=== PATIENT | female | born 1960 | race Caucasian/White ===

== ENCOUNTER 2020-05-19 11:12 | Outpatient (REF) | payer OTHER, SELFPAY ==
--- NOTE | 2020-05-19 11:17 | XR_ITS ---
EXAMINATION: LEFT ANKLE AND LEFT FOOT. CLINICAL INFORMATION: Pain left ankle and left foot. COMPARISON: None TECHNIQUE: 3 views left foot and 2 views left ankle. FINDINGS: LEFT FOOT: There is no visible acute fracture, dislocation or subluxation seen. There is loss of first MTP joint space with periarticular spurring. Rest of the joint spaces are maintained normal. The soft tissues are normal. LEFT ANKLE: The small to moderate size calcaneal spur and a retrocalcaneal enthesophyte. The ankle mortise and subtalar joints are normal. No visible acute fracture or dislocation seen. XR/XR foot LT min 3V IMPRESSION: Degenerative changes first MTP joint with periapical spurring. No fracture or dislocation in left foot. Mild to moderate calcaneal and small retrocalcaneal enthesophytes left ankle. No acute fracture or dislocation in left ankle.
--- NOTE | 2020-05-19 11:17 | XR_ITS ---
EXAMINATION: LEFT ANKLE AND LEFT FOOT. CLINICAL INFORMATION: Pain left ankle and left foot. COMPARISON: None TECHNIQUE: 3 views left foot and 2 views left ankle. FINDINGS: LEFT FOOT: There is no visible acute fracture, dislocation or subluxation seen. There is loss of first MTP joint space with periarticular spurring. Rest of the joint spaces are maintained normal. The soft tissues are normal. LEFT ANKLE: The small to moderate size calcaneal spur and a retrocalcaneal enthesophyte. The ankle mortise and subtalar joints are normal. No visible acute fracture or dislocation seen. XR/XR ankle LT 2V IMPRESSION: Degenerative changes first MTP joint with periapical spurring. No fracture or dislocation in left foot. Mild to moderate calcaneal and small retrocalcaneal enthesophytes left ankle. No acute fracture or dislocation in left ankle.
== END 2020-05-19 11:13 | disposition home or self-care (01) ==
LOC: HO.HMGCX 11:12
PROVIDERS: PCP Nurse Practitioner Family; Visit Provider Nurse Practitioner Family
DX: M25.572 Pain in left ankle and joints of left foot (principal)
CPT/HCPCS: 73600; 73630

== ENCOUNTER 2020-08-11 08:51 | Outpatient (REF) | payer OTHER, SELFPAY ==
[2020-08-11 11:15] LABS: MANUAL DIFF FLAG NO
[2020-08-11 11:23] LABS: Basophils Absolute Auto 0.1 X10*3/uL (0.0-0.2); Basophils Percent Auto 0.8 % (0-2); Eosinophils Absolute Auto 0.2 X10*3/uL (0.0-0.4); Eosinophils Percent Auto 2.7 % (0-4); Hematocrit 42.8 % (37-47); Hemoglobin 13.8 g/dl (12.0-16.0); Imm Gran Abs Auto 0.02 X10*3/uL (0.00-0.03); Imm Gran Pct Auto 0.3 % (0.0-0.4); Lymphocytes Absolute Auto 2.1 X10*3/uL (1.2-4.9); Lymphocytes Percent Auto 32.1 % (20-40); Mean Corpuscular HGB Conc 32.2 g/dl (31.0-35.0); Mean Corpuscular Hemoglobin 30.3 pg (27.0-33.0); Mean Corpuscular Volume 93.9 fL (80-98); Mean Platelet Volume 10.3 fL (9.4-12.3); Monocytes Absolute Auto 0.6 X10*3/uL (0.1-1.2); Monocytes Percent Auto 9.1 % (2-11); Neutrophils Absolute Auto 3.6 X10*3/uL (2.0-8.3); Platelet Count 248 X10*3/uL (160-400); Red Blood Count 4.56 X10*6/uL (4.20-5.50); Red Cell Distribution Width 12.5 % (11.0-16.0); White Blood Count 6.6 X10*3/uL (4.8-10.8)
[2020-08-11 11:55] LABS: Alanine Aminotransferase 18 U/L (0-31); Albumin Level 4.5 g/dL (3.5-5.0); Alkaline Phosphatase 62 U/L (39-117); Anion Gap 13 (12-20); Aspartate Amino Transferase 20 U/L (5-31); Bilirubin Total 0.5 mg/dL (0.0-1.0); Blood Urea Nitrogen 19 mg/dL (9-16); C Reactive Protein 0.13 mg/dL (< or = 0.50); Calcium 9.8 mg/dL (8.4-10.2); Carbon Dioxide 29 mmol/L (22-29); Chloride 102 mmol/L (96-108); Cholesterol 163 mg/dL; Estimated Glomerular Filt Rate > 60; Glucose Fasting 100 mg/dL (60-99); HDL Cholesterol 49 mg/dL; LDL Cholesterol Calculated 81 mg/dl; Rheumatoid Factor < 15.0 IU/mL (<15.0); Sodium 140 mmol/L (135-145); Total Protein 6.9 g/dL (6.5-8.0); Triglycerides 166 mg/dL
[2020-08-11 12:11] LABS: Erythrocyte Sedimentation Rate 3 MM/HR (0-20)
[2020-08-11 12:19] LABS: TSH reflex Free T4 3.27 uIU/mL (0.32-4.0); Vitamin D 25-OH Total 32.4 ng/mL (>30)
[2020-08-12 23:12] LABS: Anti Nuclear Antibody Pattern Mitotic, Centrosome; Anti Nuclear Antibody Screen POSITIVE (NEGATIVE); Anti Nuclear Antibody Titer 1:40 titer
[2020-08-13 13:36] LABS: Cyclic Citrullinated Peptide <16 UNITS
== END 2020-08-11 08:52 | disposition home or self-care (01) ==
LOC: HO.HMGCLDS 08:51
PROVIDERS: PCP Nurse Practitioner Family; Visit Provider Nurse Practitioner Family
DX: Z00.00 Encounter for general adult medical examination without abnormal findings (principal); Z82.61 Family history of arthritis; Z78.0 Asymptomatic menopausal state
CPT/HCPCS: 36415; 80053; 80061; 82306; 84443; 85025; 85652; 86038; 86039; 86140; 86200; 86431

== ENCOUNTER 2020-11-09 08:28 | Outpatient (REF) | payer OTHER, SELFPAY ==
[2020-11-09 10:17] LABS: MANUAL DIFF FLAG NO
[2020-11-09 10:22] LABS: Basophils Percent Auto 0.6 % (0-2); Eosinophils Absolute Auto 0.1 X10*3/uL (0.0-0.4); Eosinophils Percent Auto 1.8 % (0-4); Hematocrit 44.1 % (37-47); Hemoglobin 14.1 g/dl (12.0-16.0); Imm Gran Abs Auto 0.03 X10*3/uL (0.00-0.03); Imm Gran Pct Auto 0.4 % (0.0-0.4); Lymphocytes Absolute Auto 1.9 X10*3/uL (1.2-4.9); Lymphocytes Percent Auto 27.8 % (20-40); Mean Corpuscular Hemoglobin 29.4 pg (27.0-33.0); Mean Corpuscular Volume 91.9 fL (80-98); Mean Platelet Volume 10.2 fL (9.4-12.3); Monocytes Absolute Auto 0.5 X10*3/uL (0.1-1.2); Monocytes Percent Auto 7.6 % (2-11); Neutrophils Absolute Auto 4.2 X10*3/uL (2.0-8.3); Neutrophils Percent Auto 61.8 % (45-73); Platelet Count 263 X10*3/uL (160-400); Red Cell Distribution Width 12.8 % (11.0-16.0); White Blood Count 6.8 X10*3/uL (4.8-10.8)
[2020-11-09 10:32] LABS: Glucose Urine UA NEG (NEG); Leukocyte Esterase Urine TRACE (NEG); Nitrite Urine NEG (NEG); PH 6.5 (5.0-8.0); Specific Gravity - Urine <= 1.005 (1.005-1.025); Urine Blood NEG (NEG); Urine Ketones NEG (NEG); Urine Protein NEG (NEG-TRACE)
[2020-11-09 10:34] LABS: Appearance Urine CLEAR; Color Urine STRAW
[2020-11-09 10:50] LABS: Alanine Aminotransferase 17 U/L (0-31); Albumin Level 4.7 g/dL (3.5-5.0); Alkaline Phosphatase 66 U/L (39-117); Anion Gap 15 (12-20); Aspartate Amino Transferase 21 U/L (5-31); Bilirubin Total 0.4 mg/dL (0.0-1.0); Blood Urea Nitrogen 17 mg/dL (9-16); C Reactive Protein 0.15 mg/dL (< or = 0.50); Calcium 10.3 mg/dL (8.4-10.2); Carbon Dioxide 26 mmol/L (22-29); Chloride 103 mmol/L (96-108); Estimated Glomerular Filt Rate > 60; Glucose Random 117 mg/dL (60-115); Potassium 4.1 mmol/L (3.3-5.1); Sodium 140 mmol/L (135-145); Total Protein 7.2 g/dL (6.5-8.0)
[2020-11-09 11:13] LABS: Erythrocyte Sedimentation Rate 2 MM/HR (0-20)
[2020-11-09 11:18] LABS: RBC Urine 0 /HPF (0); Squamous Epithelial Cell Urine TRACE /LPF; WBC Urine 0-2 /HPF (0-4)
[2020-11-09 11:19] LABS: Renal Epithelial Cells Urine TRACE /LPF
[2020-11-10 13:51] LABS: Complement C3 154 mg/dL (83-193)
[2020-11-11 07:57] LABS: Thyroglobulin Antibodies <1 IU/mL (< or = 1); Thyroid Peroxidase Antibodies 19 IU/mL (<9)
[2020-11-11 15:22] LABS: PTT (LAC) Screen 29 sec (< OR = 40)
[2020-11-12 15:47] LABS: Anti DNA DS Antibody <1 IU/mL; Antibody to SS-A Antigen <1.0 NEG AI (<1.0 NEG); Antibody to SS-B Antigen <1.0 NEG AI (<1.0 NEG); SM/Ribonucleoprotein Ab <1.0 NEG AI (<1.0 NEG); Smith Protein <1.0 NEG AI (<1.0 NEG)
[2020-11-13 14:32] LABS: Cardiolipin IgG Ab <2.0 GPL-U/mL; Cardiolipin IgM Ab <2.0 MPL-U/mL
[2020-11-15 16:16] LABS: Beta-2 Microglobulin, Serum 2.11 mg/L (< OR = 2.51)
== END 2020-11-09 08:29 | disposition home or self-care (01) ==
LOC: HO.LAB 08:28
PROVIDERS: PCP Nurse Practitioner Family; Visit Provider Student in an Organized Health Care Education/Training Program
DX: R76.8 Other specified abnormal immunological findings in serum (principal)
CPT/HCPCS: 36415; 80053; 81001; 82232; 85025; 85597; 85613; 85652; 85730; 86140; 86147; 86160; 86225; 86235; 86376; 86800

== ENCOUNTER → 2020-11-30 08:57 | Outpatient (BNVA) | payer OTHER, SELFPAY | PROVIDERS: PCP Nurse Practitioner Family; Visit Provider Student in an Organized Health Care Education/Training Program ==

== ENCOUNTER 2021-05-14 08:58 | Outpatient (REF) | payer OTHER, SELFPAY ==
[2021-05-14 11:16] LABS: MANUAL DIFF FLAG NO
[2021-05-14 11:22] LABS: Basophils Percent Auto 0.5 % (0-2); Eosinophils Absolute Auto 0.1 X10*3/uL (0.0-0.4); Eosinophils Percent Auto 1.6 % (0-4); Hematocrit 45.2 % (37.0-47.0); Hemoglobin 14.2 g/dl (12.0-16.0); Imm Gran Abs Auto 0.02 X10*3/uL (0.00-0.03); Imm Gran Pct Auto 0.2 % (0.0-0.4); Mean Corpuscular HGB Conc 31.4 g/dl (31.0-35.0); Mean Corpuscular Hemoglobin 29.4 pg (27.0-33.0); Mean Corpuscular Volume 93.6 fL (80.0-98.0); Mean Platelet Volume 10.1 fL (9.4-12.3); Monocytes Absolute Auto 0.8 X10*3/uL (0.1-1.2); Monocytes Percent Auto 9.3 % (2-11); Neutrophils Absolute Auto 5.3 x10*3/uL (2.0-8.3); Neutrophils Percent Auto 64.4 % (45-73); Platelet Count 300 X10*3/uL (160-400); Red Blood Count 4.83 X10*6/uL (4.20-5.50); White Blood Count 8.2 X10*3/uL (4.8-10.8)
[2021-05-14 11:26] LABS: Appearance Urine CLEAR; Color Urine STRAW; Glucose Urine UA NEG (NEG); Leukocyte Esterase Urine 1+ (NEG); Nitrite Urine NEG (NEG); PH 6.5 (5.0-8.0); Specific Gravity - Urine <= 1.005 (1.005-1.025); UACC Culture Trigger YES; Urine Blood NEG (NEG); Urine Ketones NEG (NEG); Urine Protein NEG (NEG-TRACE)
[2021-05-14 11:38] LABS: RBC Urine 0-2 /HPF (0); Squamous Epithelial Cell Urine TRACE /LPF
[2021-05-14 11:56] LABS: Alanine Aminotransferase 23 U/L (0-31); Albumin Level 4.9 g/dL (3.5-5.0); Alkaline Phosphatase 70 U/L (39-117); Anion Gap 14 (12-20); Aspartate Amino Transferase 22 U/L (5-31); Bilirubin Total 0.6 mg/dL (0.0-1.0); Blood Urea Nitrogen 14 mg/dL (9-16); Calcium 10.2 mg/dL (8.4-10.2); Carbon Dioxide 28 mmol/L (22-29); Chloride 102 mmol/L (96-108); Cholesterol 174 mg/dL; Estimated Glomerular Filt Rate > 60; Glucose Fasting 100 mg/dL (60-99); HDL Cholesterol 50 mg/dL; Iron 90 mcg/dL (30-160); LDL Cholesterol Calculated 87 mg/dl; Percent Iron Saturation 20 % (15-50); Sodium 140 mmol/L (135-145); Total Iron Binding Capacity 441 mcg/dL (228-428); Total Protein 7.5 g/dL (6.5-8.0); Triglycerides 187 mg/dL; Unsaturated Iron Binding 351 ug/dL
[2021-05-14 12:19] LABS: Ferritin 287 ng/mL (10-250); TSH reflex Free T4 2.49 uIU/mL (0.32-4.0)
[2021-05-16 07:58] LABS: Folate 15.9 ng/mL (> or = 4.0); Vitamin B12 548 pg/mL (200-900)
[2021-05-16 18:17] LABS: Lyme Abs Screen <0.90 index
== END 2021-05-14 08:59 | disposition home or self-care (01) ==
LOC: HO.HMGCLDS 08:58
PROVIDERS: Visit Provider Nurse Practitioner Family
DX: R53.83 Other fatigue (principal)
CPT/HCPCS: 36415; 80053; 80061; 81001; 82607; 82728; 82746; 83540; 84443; 85025; 86617; 86618; 87086; 87147

== ENCOUNTER 2021-06-30 08:19 | Outpatient (REF) | payer OTHER, SELFPAY ==
[2021-06-30 11:02] LABS: MANUAL DIFF FLAG NO
[2021-06-30 11:13] LABS: Appearance Urine CLEAR; Color Urine YELLOW; Glucose Urine UA NEG (NEG); Leukocyte Esterase Urine NEG (NEG); Nitrite Urine NEG (NEG); Urine Blood NEG (NEG); Urine Ketones NEG (NEG); Urine Protein NEG (NEG-TRACE)
[2021-06-30 11:14] LABS: Basophils Percent Auto 0.4 % (0-2); Eosinophils Absolute Auto 0.1 X10*3/uL (0.0-0.4); Eosinophils Percent Auto 1.6 % (0-4); Hematocrit 43.5 % (37.0-47.0); Hemoglobin 13.8 g/dl (12.0-16.0); Imm Gran Abs Auto 0.03 X10*3/uL (0.00-0.03); Imm Gran Pct Auto 0.4 % (0.0-0.4); Immature Retic Fraction 13.5 % (3.0-15.9); Lymphocytes Absolute Auto 1.7 X10*3/uL (1.2-4.9); Lymphocytes Percent Auto 25.5 % (20-40); Mean Corpuscular HGB Conc 31.7 g/dl (31.0-35.0); Mean Corpuscular Hemoglobin 29.5 pg (27.0-33.0); Mean Corpuscular Volume 92.9 fL (80.0-98.0); Mean Platelet Volume 10.1 fL (9.4-12.3); Monocytes Absolute Auto 0.6 X10*3/uL (0.1-1.2); Monocytes Percent Auto 8.8 % (2-11); Neutrophils Absolute Auto 4.2 x10*3/uL (2.0-8.3); Neutrophils Percent Auto 63.3 % (45-73); Platelet Count 249 X10*3/uL (160-400); Red Blood Count 4.68 X10*6/uL (4.20-5.50); Red Cell Distribution Width 12.9 % (11.0-16.0); Retic HGB Equivalent 35.1 pg (30.0-35.0); Reticulocyte Percent 1.5 % (0.5-1.8); Reticulocytes Absolute 0.069 X10*6/uL (0.026-0.095); White Blood Count 6.7 X10*3/uL (4.8-10.8)
[2021-06-30 11:31] LABS: Alanine Aminotransferase 21 U/L (0-31); Albumin Level 4.5 g/dL (3.5-5.0); Alkaline Phosphatase 63 U/L (39-117); Anion Gap 13 (12-20); Aspartate Amino Transferase 24 U/L (5-31); Bilirubin Total 0.6 mg/dL (0.0-1.0); Blood Urea Nitrogen 15 mg/dL (9-16); C Reactive Protein 0.23 mg/dL (< or = 0.50); Carbon Dioxide 29 mmol/L (22-29); Chloride 103 mmol/L (96-108); Estimated Glomerular Filt Rate > 60; Glucose Random 107 mg/dL (60-115); Iron 95 mcg/dL (30-160); Percent Iron Saturation 23 % (15-50); Potassium 3.7 mmol/L (3.3-5.1); Sodium 141 mmol/L (135-145); Total Iron Binding Capacity 413 mcg/dL (228-428); Total Protein 6.9 g/dL (6.5-8.0); Unsaturated Iron Binding 318 ug/dL
[2021-06-30 11:53] LABS: Ferritin 241 ng/mL (10-250)
[2021-06-30 11:55] LABS: Erythrocyte Sedimentation Rate 2 MM/HR (0-20)
== END 2021-06-30 08:20 | disposition home or self-care (01) ==
LOC: HO.HMGCLDS 08:19
PROVIDERS: PCP Nurse Practitioner Family; Visit Provider Nurse Practitioner Family
DX: R79.89 Other specified abnormal findings of blood chemistry (principal); R53.83 Other fatigue
CPT/HCPCS: 36415; 80053; 81003; 82728; 83540; 85025; 85045; 85652; 86140

== ENCOUNTER 2021-07-21 10:44 | Outpatient (REF) | payer OTHER, SELFPAY ==
[2021-07-21 13:45] LABS: MANUAL DIFF FLAG NO
[2021-07-21 13:50] LABS: Basophils Percent Auto 0.5 % (0-2); Eosinophils Absolute Auto 0.1 X10*3/uL (0.0-0.4); Eosinophils Percent Auto 1.7 % (0-4); Hematocrit 45.9 % (37.0-47.0); Hemoglobin 14.5 g/dl (12.0-16.0); Imm Gran Abs Auto 0.02 X10*3/uL (0.00-0.03); Imm Gran Pct Auto 0.3 % (0.0-0.4); Lymphocytes Absolute Auto 2.1 X10*3/uL (1.2-4.9); Lymphocytes Percent Auto 26.6 % (20-40); Mean Corpuscular HGB Conc 31.6 g/dl (31.0-35.0); Mean Corpuscular Volume 94.8 fL (80.0-98.0); Mean Platelet Volume 10.3 fL (9.4-12.3); Monocytes Absolute Auto 0.6 X10*3/uL (0.1-1.2); Neutrophils Percent Auto 63.9 % (45-73); Platelet Count 263 X10*3/uL (160-400); Red Blood Count 4.84 X10*6/uL (4.20-5.50); Red Cell Distribution Width 12.9 % (11.0-16.0); White Blood Count 7.9 X10*3/uL (4.8-10.8)
[2021-07-21 13:59] LABS: Alanine Aminotransferase 23 U/L (0-31); Albumin Level 4.7 g/dL (3.5-5.0); Alkaline Phosphatase 67 U/L (39-117); Anion Gap 14 (12-20); Aspartate Amino Transferase 25 U/L (5-31); Bilirubin Total 0.7 mg/dL (0.0-1.0); Blood Urea Nitrogen 10 mg/dL (9-16); Carbon Dioxide 27 mmol/L (22-29); Chloride 100 mmol/L (96-108); Estimated Glomerular Filt Rate > 60; Glucose Random 85 mg/dL (60-115); Potassium 3.4 mmol/L (3.3-5.1); Sodium 138 mmol/L (135-145); Total Protein 7.2 g/dL (6.5-8.0)
[2021-07-22 22:32] LABS: Transglutaminase IgA <1.0 U/mL
[2021-07-27 16:05] LABS: Endomysial IgA Antibody Negative (Negative)
== END 2021-07-21 10:45 | disposition home or self-care (01) ==
LOC: HO.HMGCLDS 10:44
PROVIDERS: PCP Nurse Practitioner Family; Visit Provider Nurse Practitioner Family
DX: R19.7 Diarrhea, unspecified (principal)
CPT/HCPCS: 36415; 80053; 85025; 86231; 86364

== ENCOUNTER 2021-07-26 08:02 | Outpatient (REF) | payer OTHER, SELFPAY ==
[2021-07-26 12:13] LABS: CDiff Gene PCR NEGATIVE (Negative)
[2021-07-26 13:04] LABS: Leukocytes Stool Qualitative NEGATIVE (NEGATIVE)
== END 2021-07-26 08:03 | disposition home or self-care (01) ==
LOC: HO.HMGCLNP 08:02
PROVIDERS: Visit Provider Nurse Practitioner Family
DX: R19.7 Diarrhea, unspecified (principal)
CPT/HCPCS: 87045; 87046; 87177; 87209; 87329; 87493; 89055

== ENCOUNTER → 2021-09-21 08:04 | Outpatient (BNVA) | payer OTHER, SELFPAY | PROVIDERS: PCP Nurse Practitioner Family; Referring Provider Nurse Practitioner Family; Visit Provider Physician Assistant | DX: R10.9 Unspecified abdominal pain (principal) ==

== ENCOUNTER 2022-01-31 07:49 | Outpatient (REF) | payer BC, SELFPAY ==
[2022-01-31 11:25] LABS: MANUAL DIFF FLAG NO
[2022-01-31 11:36] LABS: Basophils Absolute Auto 0.1 X10*3/uL (0.0-0.2); Basophils Percent Auto 0.8 % (0-2); Eosinophils Absolute Auto 0.2 X10*3/uL (0.0-0.4); Hematocrit 43.9 % (37.0-47.0); Hemoglobin 13.8 g/dl (12.0-16.0); Imm Gran Abs Auto 0.02 X10*3/uL (0.00-0.03); Imm Gran Pct Auto 0.3 % (0.0-0.4); Lymphocytes Absolute Auto 2.2 X10*3/uL (1.2-4.9); Lymphocytes Percent Auto 29.3 % (20-40); Mean Corpuscular HGB Conc 31.4 g/dl (31.0-35.0); Mean Corpuscular Hemoglobin 28.8 pg (27.0-33.0); Mean Corpuscular Volume 91.6 fL (80.0-98.0); Mean Platelet Volume 10.2 fL (9.4-12.3); Monocytes Absolute Auto 0.8 X10*3/uL (0.1-1.2); Monocytes Percent Auto 10.4 % (2-11); Neutrophils Absolute Auto 4.3 x10*3/uL (2.0-8.3); Neutrophils Percent Auto 57.2 % (45-73); Platelet Count 247 X10*3/uL (160-400); Red Blood Count 4.79 X10*6/uL (4.20-5.50); Red Cell Distribution Width 13.4 % (11.0-16.0); White Blood Count 7.5 X10*3/uL (4.8-10.8)
[2022-01-31 12:14] LABS: Alanine Aminotransferase 18 U/L (0-31); Albumin Level 4.6 g/dL (3.5-5.0); Alkaline Phosphatase 64 U/L (39-117); Anion Gap 13 (12-20); Aspartate Amino Transferase 20 U/L (5-31); Bilirubin Total 0.4 mg/dL (0.0-1.0); Blood Urea Nitrogen 14 mg/dL (9-16); Calcium 9.8 mg/dL (8.4-10.2); Carbon Dioxide 29 mmol/L (22-29); Chloride 103 mmol/L (96-108); Estimated Glomerular Filt Rate > 60; Glucose Random 102 mg/dL (60-115); Potassium 3.8 mmol/L (3.3-5.1); Sodium 141 mmol/L (135-145); Total Protein 6.9 g/dL (6.5-8.0)
[2022-01-31 12:36] LABS: TSH reflex Free T4 2.14 uIU/mL (0.32-4.0); Vitamin D 25-OH Total 30.2 ng/mL (>30)
== END 2022-01-31 07:50 | disposition home or self-care (01) ==
LOC: HO.HMGCLDS 07:49
PROVIDERS: PCP Nurse Practitioner Family; Visit Provider Nurse Practitioner Family
DX: I10 Essential (primary) hypertension (principal); F41.9 Anxiety disorder, unspecified
CPT/HCPCS: 36415; 80053; 82306; 84443; 85025

== ENCOUNTER 2022-02-01 06:57 | Day surgery (SDC) | payer BC, SELFPAY ==
--- NOTE | 2022-01-31 09:11 | P.CONAN_ITS ---
Documented by User: Celeste Bergeron NP 01/31/22 09:12 HPI - Anesthesia Eval Consult details Narrative: 62yo F for Upper Endoscopy and Colonoscopy PMF Active Problems Active Problems: All Active Problems (Updated 09/23/21 @ 13:28 by Deja Franks PA-C) Acid reflux (Acute) Hemorrhoids (Acute) Abdominal cramping (Acute) Diarrhea (Acute) Elevated ferritin (Acute) Anxiety (Acute) Fatigue (Acute) HTN (hypertension) (Acute) Mold exposure (Acute) Pain of left scapula (Acute) Positive LURDES (antinuclear antibody) (Acute) Postmenopausal (Acute) Left foot pain (Acute) Left ankle pain (Acute) Family history of rheumatoid arthritis (Acute) Physical exam (Acute) Past Medical History Medical History (Updated 09/23/21 @ 13:28 by Deja Franks PA-C) Acid reflux Foot fracture, left Physical exam Plantar fasciitis of left foot Family History Family History Father CAD (coronary artery disease) Myocardial infarction Smoker CHF (congestive heart failure) CVD (cardiovascular disease) Mother No problems noted. Maternal Aunt CVD (cardiovascular disease) Myocardial infarction Other Substance use disorder Surgical History Surgical History No pertinent past surgical history Social History Social History Housing: House Patient Tobacco Use Status: Never used Tobacco e-Cigarette/Vaping Use: Never Used Are you DNR?: No Advance Directives: No Advance Directives Information Provided: Yes Nutrition Risks: No Nutritional Risk Current occupational status: employed Cognitive needs: No Hearing needs: No Vision needs: No Meds Allergies Allergy/AdvReac Type Severity Reaction Status Date / Time atorvastatin [Lipitor] AdvReac Unknown Myalgia Verified 09/21/21 08:11 metformin AdvReac Unknown GI side Verified 09/21/21 08:11 effects simvastatin AdvReac Unknown Myalgia Verified 09/21/21 08:11 Home Medications Medication Instructions Recorded Confirmed Last Taken Type multivitamin (Daily Multi-Vitamin 1 tab PO DAILY 05/17/21 09/13/21 Unknown History tablet) L. rhamnosus GG 10 billion cap PO 09/13/21 09/13/21 Unknown History [id number] 70 mg-fish oil 240 mg capsule ([employer] Pro-Well 3-In-1) Exam Exam Date and Time: January 31, 2022 0911 Pertinent Lab Results Pertinent Lab Results: Laboratory Tests 07/21/21 07/21/21 10:50 10:50 WBC 7.9 Hgb 14.5 Hct 45.9 Plt Count 263 Sodium 138 Potassium 3.4 Chloride 100 Carbon Dioxide 27 BUN 10 Creatinine 0.85 Documented by User: Jazmin Spencer MD 02/01/22 08:00 [facility] Past Medical History Medical History (Updated 09/23/21 @ 13:28 by Deja Franks PA-C) Acid reflux Foot fracture, left Physical exam Plantar fasciitis of left foot Family History Family History Father CAD (coronary artery disease) Myocardial infarction Smoker CHF (congestive heart failure) CVD (cardiovascular disease) Mother No problems noted. Maternal Aunt CVD (cardiovascular disease) Myocardial infarction Other Substance use disorder Family history of problems with anesthesia: No Surgical History Surgical History No pertinent past surgical history History of Problems with Anesthesia: No Social History Social History Housing: House Patient Tobacco Use Status: Never used Tobacco e-Cigarette/Vaping Use: Never Used Are you DNR?: No Advance Directives: No Advance Directives Information Provided: Yes Nutrition Risks: No Nutritional Risk Current occupational status: employed Cognitive needs: No Hearing needs: No Vision needs: No Meds Allergies Allergy/AdvReac Type Severity Reaction Status Date / Time atorvastatin [Lipitor] AdvReac Unknown Myalgia Verified 09/21/21 08:11 metformin AdvReac Unknown GI side Verified 09/21/21 08:11 effects simvastatin AdvReac Unknown Myalgia Verified 09/21/21 08:11 Home Medications Medication Instructions Recorded Confirmed Last Taken Type multivitamin (Daily Multi-Vitamin 1 tab PO DAILY 05/17/21 09/13/21 Unknown History tablet) L. rhamnosus GG 10 billion cap PO 09/13/21 09/13/21 Unknown History [id number] 70 mg-fish oil 240 mg capsule ([employer] Pro[employer]Well 3-In-1) Exam Airway Mallampati Class: II TM Dist: >3cm Neck ROM: Full Heart: rrr Lungs: cta Assessment and Plan Assessment Anesthesia Assessment: Anesthesia Plan Discussed and Chart Reviewed Final Anesthetic Review Family History of Problems with Anesthesia: No History of Problems with Anesthesia: No NPO: Yes ASA Class: II Final Preanesthetic Review: No Changes in Pt Med Stat, Meds/Allgs Chart Reviewed and Consent Obtained/Reviewed Patient Risk: Intermediate Procedure Risk: Intermediate Anesthetic Plan Anesthetic Plan: MAC: Disposition: Standard PACU
[2022-02-01 06:14] VITALS: BMI 26.4
[2022-02-01 07:16] VITALS: BP 168/68; PULSE 62; RESP 18; TEMP 36.3; O2SAT 98
--- NOTE | 2022-02-01 07:27 | ECG_ITS ---
Test Reason : ? bbb Blood Pressure : / mmHG Vent. Rate : 060 BPM Atrial Rate : 060 BPM P-R Int : 210 ms QRS Dur : 092 ms QT Int : 432 ms P-R-T Axes : 022 -45 -09 degrees QTc Int : 432 ms Sinus rhythm with 1st degree A-V block Left axis deviation Minimal voltage criteria for LVH, may be normal variant ( Ezequiel product ) Nonspecific ST abnormality Abnormal ECG No previous ECGs available Referred By: Logan Moreira Electronically Signed By:TATIANA SLOAN
--- NOTE | 2022-02-01 07:27 | MHC.SHP ---
Pre-Procedural Eval Section A Date of Service: 02/01/22 Section B Chief Complaint: Unspecified abdominal pain,diarrhea Relevant Family History (Specify if Yes): No Relevant Social History: None Present Medications: see Short Stay Collaborative assessment Medical History: Significant History (Acid reflux Foot fracture, left Physical exam Plantar fasciitis of left foot) History of Previous Operations: No relevant previous surgery Allergies: Allergies Allergy/AdvReac Type Severity Reaction Status Date / Time atorvastatin [Lipitor] AdvReac Unknown Myalgia Verified 09/21/21 08:11 metformin AdvReac Unknown GI side Verified 09/21/21 08:11 effects simvastatin AdvReac Unknown Myalgia Verified 09/21/21 08:11 Review of Systems Sugical H&P ROS: Negative: Constitution, Cardiovascular, Respiratory, Neurological, Psychiatric, Hem-Onc, Allergic/Immunologic, Gastrointestinal, Genitourinary, Musculoskeletal, Integumentary, Endocrine and Eyes/Ears/Nose/Throat Exam Surgical H&P Exam: Normal: HEENT, Normal: Heart, Normal: Lungs, Normal: Extremities, Normal: Abdomen, Normal: Skin and Normal: Neurological Plan Diagnosis/Plan: Unchanged I have reviewed the history and physical and performed a pertinent physical examination on my patient. No changes have occurred unless specified.
[2022-02-01] MEDS: Lactated Ringers 1,000 ML 100 ML IVCONT (07:36)
--- NOTE | 2022-02-01 09:00 | W.PM.OPN ---
Operative Note Operative Note Date of Service: 02/01/22 Narrative: Operative Information Procedure Description: EGD, Colonoscopy Indication: hx of GERd, screening Anesthesia: MAC FLEXIBLE TRANSORAL UPPER GASTROINTESTINAL ENDOSCOPY AND COLONOSCOPY PROCEDURE NOTE UPPER ENDOSCOPY Consent: Indications for the procedure and potential complications of bleeding, perforation, reaction to medications and missed diagnosis were discussed with the patient and informed consent was obtained. Instrument: Olympus GIF H 190 J mid size upper endoscope Monitoring: Vital signs and clinical assessment, continuous EKG monitoring, Pulse oximetry, Carbon Dioxide monitoring and blood pressure monitoring were done throughout the procedure. Procedure: The patient was placed in the left lateral decubitis position and pre-procedure medications were administered and a bite block was placed. The endoscope was inserted into the mouth and advanced under direct vision to the third part of duodenum. A careful inspection was made as the upper endoscope was withdrawn including a retroflexed examination of the proximal stomach; Findings and interventions are described below. Findings: Larynx:normal Esophagus: GE junction at 37 cm, diaphragm hiatus at 40 cm, consistent with 3 cm sliding hiatal hernia, possible short segment barretts, bx taken from GEJ, and distal/proximal esophagus in separate jars Stomach: Streaky erythematous mucosa. Biopsies were obtained. Grade 3 flap valve on retroflexed examination of the cardia. Also noted were several fundic gland appearing polyps, some of these were inflammed and removed with cold snare and retrieved with net. Duodenum: bulbar duodenitis, bx taken Intervention: Biopsies as noted above COLONOSCOPY Instrument: Olympus variable stiffness pediatric scope 190L Colonoscopy Monitoring: Vital signs and clinical assessment, continuous EKG monitoring, Pulse oximetry, Carbon Dioxide monitoring and blood pressure monitoring were done throughout the procedure. Colon withdrawal time was 7 minutes. Procedure: The patient was placed in the left lateral decubitis position and pre-procedure medications were administered. After a digital rectal examination of the ano-rectum, the video colonoscope was inserted into the rectum and advanced through the colon to the cecum/TI. The colonoscope was slowly withdrawn in a retrograde panoramic fashion and the colon mucosa was carefully examined including a retroflexed view of the rectum. Findings and interventions are described below. Procedure Difficulty:difficult due to tight sigmoid, needed sigmoid lift Findings: Terminal Ileum-normal Cecum:normal Ascending Colon: normal Transverse Colon -normal Descending Colon:normal Sigmoid Colon: severe diverticulosis with luminal narrowing and mucosal hypertrophy Rectum: Retroflexion with large internal hemorrhoids, grade I with external hemorrhoids also noted Anorectum - normal Colon preparation: Karthaus Bowel Preparation Scale Right colon; 2 Transverse colon: 3 Left colon; 3 (0 = Unprepared colon segment with mucosa not seen due to solid stool that cannot be cleared. 1 = Portion of mucosa of the colon segment seen, but other areas of the colon segment not well seen due to staining, residual stool and/or opaque liquid. 2 = Minor amount of residual staining, small fragments of stool and/or opaque liquid, but mucosa of colon segment seen well. 3 = Entire mucosa of colon segment seen well with no residual staining, small fragments of stool or opaque liquid) Impression and Post Procedure Diagnosis: Endoscopy Findings: hiatal hernia gastritis gastric polyps duodenitis esophagitis Colonoscopy Findings: internal hemorrhoids diverticular disease Plan: Await Pathology results Repeat Colonoscopy in 10 years or earlier if clinically indicated High fiber diet leaflet avoid straining at stool, epsom salts and sitz bath, anusol supps or cream if h pylori pos treat, may benefit from PPI if not taking or PPI change, limit nsaids if possible Above findings were reviewed with the patient and relevant handouts were provided if indicated.
[2022-02-01 09:24] VITALS: BP 101/53; PULSE 54; RESP 16; TEMP 36.1; O2SAT 98
[2022-02-01 09:39] VITALS: BP 125/58; PULSE 54; RESP 18; TEMP 36.2; O2SAT 97
== END 2022-02-01 10:04 ==
LOC: HO.SSS 06:58
PROVIDERS: PCP Nurse Practitioner Family; Visit Provider Internal Medicine Gastroenterology
PROC: (CPT 45378; principal; 2022-02-01 08:30)
DX: R19.7 Diarrhea, unspecified (principal); K57.30 Diverticulosis of large intestine without perforation or abscess without bleeding; K64.0 First degree hemorrhoids; K21.9 Gastro-esophageal reflux disease without esophagitis; K29.50 Unspecified chronic gastritis without bleeding; K29.80 Duodenitis without bleeding; K31.7 Polyp of stomach and duodenum; K44.9 Diaphragmatic hernia without obstruction or gangrene; K20.80 Other esophagitis without bleeding; M72.2 Plantar fascial fibromatosis; Z79.899 Other long term (current) drug therapy; Z88.8 Allergy status to other drugs, medicaments and biological substances
CPT/HCPCS: 45378; 43239; 88305; 88342; 93005

== ENCOUNTER → 2022-02-28 08:25 | Outpatient (REF) | payer BC, SELFPAY ==
--- NOTE | 2022-02-28 08:30 | HM_ITS ---
Conclusion: 1. Patient was monitored for total period of 1 day and 4 hours 2. Baseline was normal sinus rhythm with average heart rate of 66 beats per minute 3. No significant pauses noted 4. Rare PACs noted 5. No patient reported events MTDD
--- NOTE | 2022-02-28 08:30 | CA_ITS ---
Transthoracic Echocardiogram Patient (Last, First, Middle): Jatinder Dempsey A Gender: Female Date of : 1960 Age: 62 Procedure Date: 02/28/2022 Procedure Type: Transthoracic Echocardiogram Location: OP Height: 160.02 cm Weight: 70.31 kg BSA: 1.74 m2 Heart Rate: 74 bpm BP: 130 / 70 mmHg Emu Farmer: NISHA Referring MD: Calvin Mendoza [facility] Symptoms: R06.02 - Shortness of breath Study Quality: Good ECG Rhythm: Sinus Conclusions: - The left ventricular systolic function is normal. The visually estimated ejection fraction is between 65-70%. - No obvious valvular pathology seen on this study. Findings Left Ventricle Normal left ventricular cavity size. There is normal left ventricular wall thickness. The left ventricular systolic function is normal. The visually estimated ejection fraction is between 65-70%. There is no evidence of regional wall motion abnormalities. Diastolic function is normal for age. Right Ventricle Normal right ventricular cavity size and systolic function. Atria Both atria are normal in size. Aortic Valve There is a normal trileaflet aortic valve. There is no aortic valve stenosis. There is no aortic valve regurgitation. Mitral Valve The mitral valve appears normal. There is no mitral valve regurgitation. There is no mitral valve stenosis. Pulmonic Valve The pulmonic valve is likely normal. Tricuspid Valve Normal tricuspid valve structure. There is no tricuspid valve regurgitation. Tricuspid regurgitation envelope is inadequate for calculation of right ventricular systolic pressure. Great Vessels The asc aorta is normal in size. Venous The inferior vena cava is normal in size and collapses greater than 50% with inspiration. Pericardium/Pleural There is a trivial pericardial effusion. Prior Study Comparison No significant change compared to prior study dated: 11/12/2018. Recommendations, Care & Conclusions No obvious valvular pathology seen on this study. Measurements 2D Linear Measurements IVSd: 1.01 0.6-0.9/0.6-1.0 cm LVIDd: 3.45 3.9-5.3/4.2-5.9 cm LVIDd Index: 1.98 2.4-3.2/2.2-3.1 cm/m2 LVIDs: 2.00 2.0-3.6 cm LVPWd: 0.92 0.7-1.1 cm LA Diam: 3.50 2.7-3.8/3.0-4.0 cm LAIDs Index: 2.01 1.5-2.3 cm/m2 LV Mass: 118.88 67-162/88-224 g LV Mass Index: 68.32 43-95/49-115 g/m2 LVOT Diam: 1.90 3.0+(-)1.3 cm 2D Systolic Function EF 4C: 64.40 >55% EF 2C: 63.00 >55% EF BiP: 63.80 >55% Mitral Valve MV Pk E: 0.94 MV PK A: 1.08 MV Decel Time: 227.00 E/A: 0.90 E'Lateral: 9.90 E'Medial: 7.07 E/E' Med: 13.20 E/E' Lat: 9.40 PHT: 67.00 MVA PHT: 3.28 Decel Clinch: 4.12 Aortic Valve AoV Pk Marc: 1.45 AoV Mn Marc: 1.01 AoV VTI: 0.28 AoV Pk Grad: 8.00 Aov Mn Grad: 5.00 NICKO Cont.VTI: 2.43 LVOT LVOT Pk Marc: 1.08 LVOT Mn Marc: 0.83 LVOT VTI: 0.24 LVOT Pk Grad: 5.00 LVOT Mn Grad: 3.00 LVOT Diam: 1.90 LVOT Area: 2.84 Diastolic Function MV Pk E: 0.94 MV Pk A: 1.08 E/A: 0.90 E'Medial: 7.07 E/E' Med: 13.20 E' Laterial: 9.90 E/E' Lat: 9.40 Right Ventricle TAPSE (mm): 26.90 TVS' Marc: 14.40 Tricuspid Valve RA Press: 3.00 Great Vessels Aorta Sinus of Valsalva: 3.00 2.0-3.5 cm Ao Asc: 3.00 2.1-3.4 cm Pulmonary Valve PV Pk Marc: 1.17 Peak PV Grad: 5.00 Updated in Other Vendor System with Status of Final Silvino Rodríguez MD electronically signed on 02/28/2022 3:51:56 PM with status of Final
== END ==
LOC: HO.CARD 08:25
PROVIDERS: PCP Nurse Practitioner Family; Visit Provider Internal Medicine Cardiovascular Disease
DX: R06.02 Shortness of breath (principal)
CPT/HCPCS: 93242; 93306

== ENCOUNTER → 2022-03-06 08:13 | Outpatient (REF) | payer BC, SELFPAY ==
--- NOTE | ~2022-03-06 | NM_ITS ---
Myocardial perfusion study Indication: Shortness of breath evaluate for myocardial ischemia Technique: The patient was brought in for a Lexiscan perfusion study on 03/06/2022. Patient performed low-level exercise and was injected 0.4 mg of Lexiscan intravenously. Within a minute of injection, 25 mCi of sestamibi was given intravenously. Images were obtained using the SPECT gamma camera interlaced with the gating device. Images were obtained in supine position. Resting perfusion study was performed on 03/07/2022. Patient was administered 25 mCi of sestamibi intravenously at rest. Images were then obtained in supine position. Images obtained with and without CT attenuation. Total DLP 78 mGy-cm. Images were processed with the software and compared side to side in short axis, horizontal long axis and vertical long axis views. Findings: The stress perfusion study showed non attenuated images show minimally reduced uptake in the lateral wall of the LV myocardium mostly in basal segment. Attenuation corrected images show normal uptake in all segments of LV myocardium. The gated study shows normal LV systolic function with calculated LVEF of 65%. LV cavity is normal size. The gated study shows normal systolic wall thickening and contraction of segments. Resting study shows no change in perfusion pattern compared to stress perfusion study. Gating at rest reveals normal systolic wall motion with ejection fraction at 57%. The findings are consistent with normal myocardial perfusion. NM/NM ada perf SPECT rest & str Impression: 1. Myocardial perfusion imaging study shows normal myocardial perfusion 2. Gated LVEF is 65% 3. Transient ischemic dilatation not present EKG is nondiagnostic for ischemia
--- NOTE | 2022-03-06 08:16 | CA_ITS ---
Acquisition Time: 2022-03-06 08:24:28 Total Exercise Time: 00:11:01 Test Indications: Dyspnea Medications: HCTZ IRBASARTAN PANTOPRAZOLE LORAZAPAM SYNTHROID ROSUVASTATIN Protocol: JOSHUA Max HR: 111 BPM 70% of Pred: 158 BPM Max BP: 194/090 mmHG Max Work Load: 4.2 METS Exercise stress test with exercise 2 min of Joshua protocol with development of asymptomatic rate related LBBB. Treadmill stopped and patient assisted to sitting. Once heart rate lessened and LBBB resolved, testing changed to a pharmacological stress test with Lexiscan injection, without anginal symptoms, with recurrent LBBB, with normotensive response to exercise, with nondiagnostic EKG for ischemia.In recovery she was treated with Aminophylline 75mg IVP to reverse Lexiscan. Nuclear images pending.Test reviewed with Dr Tovar. Referred By: Calvin Mendoza Overread By: DANY SPARROW
== END ==
LOC: HO.CARD 08:13
PROVIDERS: PCP Nurse Practitioner Family; Visit Provider Nurse Practitioner Family
DX: R06.02 Shortness of breath (principal)
CPT/HCPCS: 78452; 93017; A9500; J0280; J2785

== ENCOUNTER 2022-07-03 07:30 | Outpatient (REF) | payer BC, SELFPAY ==
[2022-07-03 12:22] LABS: Cholesterol 165 mg/dL; HDL Cholesterol 41 mg/dL; LDL Cholesterol Calculated 93 mg/dl; Triglycerides 156 mg/dL
== END 2022-07-03 07:31 | disposition home or self-care (01) ==
LOC: HO.HMGCLDS 07:30
PROVIDERS: PCP Nurse Practitioner Family; Visit Provider Nurse Practitioner Family
DX: R06.02 Shortness of breath (principal); E78.5 Hyperlipidemia, unspecified
CPT/HCPCS: 36415; 80061

== ENCOUNTER 2023-03-13 11:58 | Outpatient (AMB) | payer BC, SELFPAY ==
--- OUTSIDE RECORDS SUMMARY | 2023-03-13 12:00 | XMS_ITS | Continuity of Care Document ---
Author Name Unknown Organization [facility] [place] Address [address] [address] [place] [address]- Care Team Providers Care Copier Repair Technician Name Role Phone Calvin Mendoza NP Primary Care Physician Encounter 11/16/21 - 11/23/21 [facility] [address], [facility] [address] [place] [address]- Attending Physician: Calvin Mendoza NP Admitting Physician: Calvin Mendoza NP Referring Physician: Calvin Mendoza NP
--- OUTSIDE RECORDS SUMMARY | 2023-03-13 12:00 | XMS_ITS | Continuity of Care Document ---
Author Name Unknown Organization [facility] Address [address] [facility] [place] [address] [place] [address]- Care Team Providers Care Food Safety Coordinator Name Role Phone Kelly HUITRON, Calvin Richey Primary Care Physician [phone] Encounter 12/13/22 - 12/20/22 [facility] [place] [address] [facility], [address] [place] [address]- Attending Physician: Aimee Knight MD Admitting Physician: Aimee Knight MD Referring Physician: Aimee Knight MD Results Radiology Reports * Exam Date Time Procedure Performing Provider Status 12/13/22 10:05 AM MM Digital Mammo Screening Kari Greer; Auth (Verified) Notes: (MM Digital Mammo Screening) Reason For Exam: Z12.31 ROUTINE SCREENING RESULT: MM Digital Mammo Screening PROCEDURE: MM Digital Mammo Screening INDICATION: Screening for breast cancer. No known palpable abnormalities. COMPARISON: Prior mammograms most recently dated 11/16/2021. TECHNIQUE: Full-field digital CC and MLO 3D tomosynthesis images of both breasts were acquired. Computer-aided detection (CAD) was utilized in the interpretation of this study. DENSITY: The breast tissue is heterogeneously dense, which may obscure masses. FINDINGS: No suspicious masses, suspicious microcalcifications, or areas of architectural distortion are seen in either breast to suggest malignancy. IMPRESSION: No mammographic evidence of malignancy. RECOMMENDATION: Annual mammographic screening BI-RADS: 1 (Negative) Lay letter mailed to patient WSN: [id number] Ordering Physician: Aimee Knight Dictated By: Alyssa Ward MD Dictated Date/Time: 12/13/22 10:08 am Reviewed By: Alyssa Ward MD Signed By: Alyssa Ward MD Signed Date/Time: 12/13/22 10:08 am Transcribed By: KIMBER Sales And Distribution Clerk Date/Time: 12/13/22 10:05 am Birads: Patient Care team information Care Team Personnel Name: Calvin Mendoza NP Position: Reference Physician Member Role: PCP Address: Address: [address] [place] [address]- Care Team Related Persons Name: RIMMA JARETH Address: [place] [address]
--- OUTSIDE RECORDS SUMMARY | 2023-03-13 12:00 | XMS_ITS | Continuity of Care Document ---
Author Name Unknown Organization [facility] Address [address] [facility] [address] [place] [address]- Care Team Providers Care Teacher Private Name Role Phone Kelly HUITRON, Calvin Richey Primary Care Physician Encounter 10/15/20 - 10/22/20 [facility] [address], [address] [place] [address]- Attending Physician: Calvin Mendoza NP Admitting Physician: Calvin Mendoza NP Referring Physician: Eugene KELSEY, Aimee Boykin
--- OUTSIDE RECORDS SUMMARY | 2023-03-13 12:00 | XMS_ITS | Continuity of Care Document ---
Author Name Unknown Organization [facility] Address [address] [place] [address]- Care Team Providers Care Cuff Presser Name Role Phone Kelly HUITRON, Calvin Richey Primary Care Physician Encounter 10/08/19 - 10/15/19 [facility] [address] [facility] [address] [place], [place] [phone] Attending Physician: Javier KELSEY, Aimee Boykin Admitting Physician: Javier KELSEY, Aimee Boykin Referring Physician: Javier KELSEY, Aimee Boykin Results Radiology Reports * Exam Date Time Procedure Performing Provider Status 10/08/19 9:45 AM Dexa Bone Density (Axial) Tasha Connor nne; Auth (Verified) Notes: (Dexa Bone Density (Axial)) Reason For Exam: OSTEOPOROSIS RESULT: DEXA BONE DENSITY (AXIAL) Bone Density Report Name: ALEXIS SHANKS Age: 59 Sex: Female Ethnicity: White Date of : 1960 Indication: SCREENING FOR OSTEOPOROSIS. Referring Provider: AIMEE TOTH Study: Bone densitometry was performed. Exam Date: October 08, 2019 Accession number: [id number] Bone Density: Region BMD T-score Z-score Classification AP Spine (L1-L4) 1.059 0.1 1.5 Normal Femoral Neck (Left) 0.821 -0.3 1.0 Normal Total Hip (Left) 1.050 0.9 1.8 Normal World Health Organization criteria for BMD impression classify patients as: Normal (T-score at or above -1.0), Osteopenia (T-score between -1.0 and -2.5), or Osteoporosis (T-score at or below -2.5). 10-year Fracture Risk: FRAX not reported because: All T-scores at or above -1.0 Clinical Information Provided by Patient: Patient maximum height was 62.5 Menopause Age: 53 Onset of menses at age 12 Number of children 2 Impression: The patient has normal bone density as determined by WHO criteria. A repeat bone density assessment should be considered in two years. Reported by: Charlene Livingston M.D. on 10/08/2019 1:49:00 PM. Dictated By: Charlene Livingston MD Dictated Date/Time: 10/08/19 1:50 pm Reviewed By: Charlene Livingston MD Signed By: Charlene Livingston MD Signed Date/Time: 10/08/19 1:50 pm Transcribed By: KIMBER Transcribed Date/Time: 10/08/19 1:50 pm
[2023-03-13 13:52] VITALS: BP 130/80; PULSE 74; TEMP 36.7; O2SAT 96; BMI 29.0
--- NOTE | 2023-03-13 13:52 | AM.OFFWIN_ITS ---
Intake Vital Signs 03/13/23 13:52 Height 5 ft 3 in Weight 163 lb 8 oz BMI 29.0 BP 130/80 Blood Pressure Location Rt brachial Position Sitting Pulse 74 Pulse Source Pulse Oximeter Temp 98.0 F Temp Source Temporal Artery Scan Pulse Oximetry (%) 96 Oxygen Delivery Method Room Air Intake Visit Reasons: EP, left eye discharge Intake Note: pt is here for c/o left eyelid cut with discharge Patient Tobacco Use Status: Never used Tobacco Allergies atorvastatin [Lipitor] Adverse Reaction (Unknown, Verified 03/13/23 14:19) Myalgia metformin Adverse Reaction (Unknown, Verified 03/13/23 14:19) GI side effects simvastatin Adverse Reaction (Unknown, Verified 03/13/23 14:19) Myalgia Medication List - Last Reconciled 03/13/23 by Timoteo Hewitt MD fenofibrate nanocrystallized 48 mg PO DAILY fluticasone propionate 50 mcg/actuation 1 spray intranasal BID PRN 30 days hydrochlorothiazide 12.5 mg PO DAILY 90 days hydrocortisone acetate (Anusol-HC) 25 mg WV DAILY PRN irbesartan 75 mg PO DAILY 30 days L.rhamnosus [id number] oil 10 billion [id number] (Culturelle Pro-Well 3-In-1) caps PO lorazepam 0.5 mg PO DAILY PRN 30 days pantoprazole 40 mg PO DAILY 30 days rosuvastatin 40 mg PO DAILY Synthroid (levothyroxine) 75 mcg PO QAM NS Do you need a note to return to daycare/school/sports/work: Yes HPI EP, left eye discharge HPI Details 63-year-old female [facility] to [facility] for a sick visit. Patient is complaining of irritation in the left upper eyelid. Minimal discharge. [facility] Medical History Acid reflux Foot fracture, left Physical exam Plantar fasciitis of left foot Surgical History No pertinent past surgical history Family History Father CAD (coronary artery disease) Myocardial infarction Smoker CHF (congestive heart failure) CVD (cardiovascular disease) Mother No problems noted. Maternal Aunt CVD (cardiovascular disease) Myocardial infarction Other Substance use disorder Social History Housing: House Patient Tobacco Use Status: Never used Tobacco e-Cigarette/Vaping Use: Never Used Second Hand Smoke Exposure: No service: No Current occupational status: retired Cognitive needs: No Hearing needs: No Vision needs: No Physical Exam Vital Signs: Last Vital Signs Temp 98.0 F 03/13/23 13:52 Pulse 74 03/13/23 13:52 BP 130/80 03/13/23 13:52 Pulse Ox 96 03/13/23 13:52 Oxygen Delivery Method Room Air 03/13/23 13:52 BMI result Body Mass Index 29.0 Eyes Other: Left eye: Tarsal conjunctiva is congested slight swelling in the middle of the left upper eyelid. Assessment & Plan Assessment & Plan (1) Hordeolum of left eye: Code(s): H00.016 - Hordeolum externum left eye, unspecified eyelid Plan: Erythromycin ophthalmic ointment sent. Apply warm compress. If symptoms not better to follow-up here. Coding Level of Care Code Est Pt Level 3 (23178) Diagnoses Hordeolum of left eye H00.016
== END 2023-03-13 14:48 | disposition home or self-care (01) ==
PROVIDERS: PCP Nurse Practitioner Family; Visit Provider Internal Medicine
DX: H00.016 Hordeolum externum left eye, unspecified eyelid (principal)
CPT/HCPCS: 99213

== ENCOUNTER 2023-03-16 07:37 | Outpatient (REF) | payer BC, SELFPAY ==
[2023-03-16 11:28] LABS: MANUAL DIFF FLAG NO
[2023-03-16 11:34] LABS: Appearance Urine Cloudy; Color Urine Yellow; Glucose Urine UA Negative (Negative); Leukocyte Esterase Urine Trace (Negative); Nitrite Urine Negative (Negative); PH 7.5 (5.0-9.0); UMIC TRIGGER UACC YES; Urine Blood Negative (Negative); Urine Ketones Negative (Negative); Urine Protein Negative (Neg-Trace)
[2023-03-16 11:38] LABS: Bacteria Urine None Seen (None Seen); Hyaline Casts Urine 0-2 /LPF (0-2); RBC Urine 0-2 /HPF (0-2); WBC Urine 0-5 /HPF (0-5)
[2023-03-16 11:43] LABS: Basophils Percent Auto 0.4 % (0-2); Eosinophils Absolute Auto 0.2 X10*3/uL (0.0-0.4); Eosinophils Percent Auto 2.2 % (0-4); Hematocrit 42.1 % (37.0-47.0); Hemoglobin 13.6 g/dl (12.0-16.0); Imm Gran Abs Auto 0.02 X10*3/uL (0.00-0.03); Imm Gran Pct Auto 0.3 % (0.0-0.4); Lymphocytes Absolute Auto 1.9 X10*3/uL (1.2-4.9); Lymphocytes Percent Auto 27.2 % (20-40); Mean Corpuscular HGB Conc 32.3 g/dl (31.0-35.0); Mean Corpuscular Hemoglobin 29.8 pg (27.0-33.0); Mean Corpuscular Volume 92.1 fL (80.0-98.0); Monocytes Absolute Auto 0.8 X10*3/uL (0.1-1.2); Monocytes Percent Auto 11.1 % (2-11); Neutrophils Absolute Auto 4.1 x10*3/uL (2.0-8.3); Neutrophils Percent Auto 58.8 % (45-73); Platelet Count 250 X10*3/uL (160-400); Red Blood Count 4.57 X10*6/uL (4.20-5.50); Red Cell Distribution Width 13.2 % (11.0-16.0); White Blood Count 6.9 X10*3/uL (4.8-10.8)
[2023-03-16 12:03] LABS: Alanine Aminotransferase 20 U/L (0-31); Albumin Level 4.5 g/dL (3.5-5.0); Alkaline Phosphatase 60 U/L (39-117); Anion Gap 12 (12-20); Aspartate Amino Transferase 24 U/L (5-31); Bilirubin Total 0.5 mg/dL (0.0-1.0); Blood Urea Nitrogen 15 mg/dL (9-16); Calcium 9.6 mg/dL (8.4-10.2); Carbon Dioxide 29 mmol/L (22-29); Chloride 104 mmol/L (96-108); Cholesterol 149 mg/dL (<200); Estimated Glomerular Filt Rate > 60; Glucose Fasting 103 mg/dL (60-99); HDL Cholesterol 44 mg/dL (>40); LDL Cholesterol Calculated 77 mg/dL (<100); Potassium 3.6 mmol/L (3.3-5.1); Sodium 141 mmol/L (135-145); Triglycerides 142 mg/dL (<150)
[2023-03-16 12:24] LABS: TSH reflex Free T4 3.13 uIU/mL (0.32-4.0)
== END 2023-03-16 07:38 | disposition home or self-care (01) ==
LOC: HO.HMGCLDS 07:37
PROVIDERS: PCP Nurse Practitioner Family; Visit Provider Nurse Practitioner Family
DX: E78.5 Hyperlipidemia, unspecified (principal)
CPT/HCPCS: 36415; 80053; 80061; 81001; 84443; 85025

== ENCOUNTER 2023-05-31 13:17 | Outpatient (AMB) | payer BC, SELFPAY ==
--- NOTE | 2023-05-31 13:48 | MHC.PC.OV ---
Vital Signs 05/31/23 13:51 05/31/23 14:31 Height 5 ft 3 in Weight 162 lb 2 oz BMI 28.7 BP 148/88 H 130/80 Blood Pressure Location Rt brachial Position Sitting Pulse 66 Pulse Source Pulse Oximeter Pulse Oximetry (%) 97 Oxygen Delivery Method Room Air Intake Visit Reasons: PE Intake Note: Pt is here for her Annual PE Allergies atorvastatin [Lipitor] Adverse Reaction (Unknown, Verified 05/31/23 13:53) Myalgia metformin Adverse Reaction (Unknown, Verified 05/31/23 13:53) GI side effects simvastatin Adverse Reaction (Unknown, Verified 05/31/23 13:53) Myalgia Medication List - Last Reconciled 05/31/23 by Calvin Mendoza, MAILER AP[employer]ICE-[employer] fenofibrate nanocrystallized 48 mg PO DAILY fluticasone propionate 50 mcg/actuation 1 spray intranasal BID PRN 30 days hydrochlorothiazide 12.5 mg PO DAILY 90 days hydrocortisone acetate (Anusol-HC) 25 mg RI DAILY PRN irbesartan 75 mg PO DAILY L.rhamnosus IY--jpfd oil 10 billion [id number] (Culturelle Pro-Well 3-In-1) caps PO lorazepam 0.5 mg PO DAILY PRN 30 days pantoprazole 40 mg PO DAILY 30 days rosuvastatin 40 mg PO DAILY Synthroid (levothyroxine) 75 mcg PO QAM NS Tobacco use date assessed: 05/31/23 Dental Screening Dental Screen Date: 05/31/23 Did you have a dental visit in the last 12 months?: Yes Did you have a dental problem in the last 6 months where you did not have access to dental care?: No Was dental information given to patient?: Patient has dentist HPI PE HPI Details Pt is here for a PE. Labs were already performed. Colon screen is up to date. Mammo is up to date according to pt. 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 Pt reports increased anxiety. She is taking lorazepam prn but does not take this often. Will start buspirone 5mg bid. Pt will contact me via portal in 3-4 weeks with how she is doing on this med. Denies any SI and HI. HTN: Blood pressure is managed with irbesartan 75mg and hydrochlorothiazide 12.5mg. Pt reports that her blood pressure at home is in the 120s/70s, pt reports white coat syndrome. Denies chest pain, shortness of breath, headache, dizziness, and blurred vision. [facility] Medical History Acid reflux Plantar fasciitis of left foot Foot fracture, left Physical exam Surgical History No pertinent past surgical history Family History Father CAD (coronary artery disease) Myocardial infarction Smoker CHF (congestive heart failure) CVD (cardiovascular disease) Mother No problems noted. Maternal Aunt CVD (cardiovascular disease) Myocardial infarction Other Substance use disorder Social History Housing: House Patient Tobacco Use Status: Never used Tobacco e-Cigarette/Vaping Use: Never Used Second Hand Smoke Exposure: No service: No Current occupational status: retired Cognitive needs: No Hearing needs: No Vision needs: No Questionnaire PHQ-9 Over the last 2 weeks, how often have you been bothered by any of the following problems? 1. Little interest or pleasure in doing things: not at all 2. Feeling down, depressed, or hopeless: not at all 3. Trouble falling or staying asleep, or sleeping too much: more than half the days 4. Feeling tired or having little energy: not at all 5. Poor appetite or overeating: not at all 6. Feeling bad about yourself - or that you are a failure or have let yourself or your family down: not at all 7. Trouble concentrating on things, such as reading the newspaper or watching television: not at all 8. Moving or speaking so slowly that other people could have noticed. Or the opposite - being so fidgety or restless that you have been moving around a lot more than usual: not at all 9. Thoughts that you would be better off or of hurting yourself in some way: not at all Total score: 2 Source: Developed by Drs. Michael French, Linda Dang, Steve May and colleagues, with an educational finn from [employer]. Thrive Questionnaire Date Thrive assessed: 07/04/22 I am a: Patient What is your living situation today?: I have a steady place to live Within the past 12 months, did the food you bought not last and you didn't have the money to get more?: Never true Within the past 12 months, did you worry whether your food would run out before you got money to buy more?: Never true Do you have trouble paying for medicines?: No Do you have trouble getting transportation to medical appointments?: No Do you have trouble paying your heating and electricity bill?: No Do you have trouble taking care of your child, family member or friend?: No Do you have trouble with day-to-day activities such as bathing, preparing meals, shopping, managing finances, etc.?: No Are you currently unemployed and looking for a job?: No Are you interested in more education?: No Please select the resources that you would like help with: None THRIVE Score: 0 AUDIT C Alcohol Use Questionnaire (AUDIT-C) 1. How often do you have a drink containing alcohol?: 2-4 times a month 2. How many drinks containing alcohol do you have on a typical day when you are drinking?: 1 or 2 3. How often do you have six or more drinks on one occasion?: Never Total Score: 2 AD-7 AMB Questionnaire AD-7 Date AD - 7 assessed: 05/31/23 Feeling nervous, anxious, or on edge: 1 = Several days Not being able to stop or control worryin = Not at all Worrying too much about different things: 1 = Several days Trouble relaxin = Several days Being so restless that it is hard to sit still: 0 = Not at all Becoming easily annoyed or irritable: 0 = Not at all Feeling afraid as if something awful might happen: 0 = Not at all Total AD-7 score (0-4 normal; 5-9 mild; 10-14 moderate; 15-21 severe): 3 Source: Developed by Drs. Michael French, Linda Dang, Steve May and colleagues, with an educational finn from [employer]. Review of Systems Const Denies chills and Denies fever(s) Eyes Denies blurry vision ENT Denies vertigo, Denies dizziness and Denies sore throat Card Denies chest pain at rest, Denies chest pain with activity, Denies diaphoresis, Denies dyspnea and Denies dyspnea on exertion Resp Denies cough, Denies dyspnea, Denies dyspnea on exertion and Denies wheezing GI Denies abdominal pain, Denies melena, Denies hematochezia, Denies constipation, Denies diarrhea and Denies loose stools Denies hematuria Musc Denies numbness and Denies tingling Skin/Breast Denies lesions Neuro Denies vertigo, Denies dizziness, Denies numbness and Denies tingling Psych Reports anxiety, Denies depression, Denies homicidal ideation, Denies suicidal ideation and Denies other (substance abuse) Aller/Immun Denies wheezing Physical exam (Primary Care) Vital Signs: Last Vital Signs Pulse 66 05/31/23 13:51 BP 130/80 05/31/23 14:31 Pulse Ox 97 05/31/23 13:51 Oxygen Delivery Method Room Air 05/31/23 13:51 BMI result Body Mass Index 28.7 Tobacco/Smoking Status: Tobacco use Status Tobacco use date assessed 05/31/23 05/31/23 13:56 Patient Tobacco Use Status Never used Tobacco 05/31/23 13:48 e-Cigarette/Vaping Use Never Used 05/31/23 13:48 PHQ-9: PHQ-9 Score PHQ-9: Total score 2 05/31/23 14:36 Thrive Assessment: Date of Thrive Assessment Date Thrive assessed 07/04/22 05/31/23 13:48 Const General: cooperative Nutritional Appearance: well nourished Orientation/consciousness: patient oriented x3 HENMT Head: Yes normal to inspection, Yes normocephalic and Yes atraumatic Ears: TM's normal bilaterally Eyes General: appearance normal, both eyes and all related structures Alignment and Position: alignment normal and position normal Neck Neck: Yes normal visual inspection and Yes no lymphadenopathy Thyroid: Thyroid normal Resp Effort & Inspection: normal respiratory effort Auscultation: clear to auscultation bilaterally Cardio Rate: regular rate Rhythm: regular rhythm Heart sounds: S1 normal heart sound present, S2 normal heart sound present and no murmurs GI Palpation (GI): Soft to palpation and nontender Auscultation: normal bowel sounds Skin Other: macular, very faint, dry, lesion to forehead, skin colored. Rashes: no rashes Neuro General: patient oriented x3, moves all extremities, no focal motor deficits and deep tendon reflexes 2+ bilaterally Romberg Test: Negative Psych Appearance: grossly normal Mental Status: mental status grossly normal Speech and movement: Normal speech and movement present Affect: normal affect Attitude: cooperative Thought process: Normal thought process present Thought content: Normal thought content present Insight: Good insight present (Psych) Judgement: Good judgement present (Psych) Assessment and Plan Assessment & Plan (1) Skin lesion: Code(s): L98.9 - Disorder of the skin and subcutaneous tissue, unspecified Plan: Referred to derm (2) HTN (hypertension): Code(s): I10 - Essential (primary) hypertension Plan: BP stable at home (3) Physical exam: Code(s): Z00.00 - Encounter for general adult medical examination without abnormal findings Plan The patient agreed to the use of a medical liaison for this encounter. Scribed for LINDA Iqbal by Kendy Rose medical liaison, on 05/31/2023 at 14:10 EST. Orders: Referrals Dermatology Referral L98.9 - Disorder of the skin and subcutaneous tissue, unspecified Medications: New buspirone 5 mg PO BID 60 tabs 3RF 30 days Coding Level of Care Code Est Pt Prev Care 40-64y(45516) Diagnoses Skin lesion L98.9 HTN (hypertension) I10 Physical exam Z00.00
[2023-05-31 13:51] VITALS: BP 148/88; PULSE 66; O2SAT 97; BMI 28.7
[2023-05-31 14:31] VITALS: BP 130/80
== END 2023-05-31 14:41 | disposition home or self-care (01) ==
PROVIDERS: PCP Nurse Practitioner Family; Visit Provider Nurse Practitioner Family
DX: L98.9 Disorder of the skin and subcutaneous tissue, unspecified (principal); I10 Essential (primary) hypertension; Z00.00 Encounter for general adult medical examination without abnormal findings
CPT/HCPCS: 99396

== ENCOUNTER 2024-06-25 10:50 | Outpatient (AMB) | payer BC, SELFPAY ==
[2024-06-25 11:00] VITALS: BP 144/98; PULSE 69; RESP 18; TEMP 36.8; O2SAT 98; BMI 27.3
--- NOTE | 2024-06-25 11:00 | A.OFFPC_ITS ---
Vital Signs 06/25/24 11:00 06/25/24 11:35 Height 5 ft 3 in Weight 154 lb BMI 27.3 BP 144/98 H 146/88 H Blood Pressure Location Lt brachial Rt brachial Position Sitting Sitting Respiration 18 Pulse 69 Pulse Source Pulse Oximeter Temp 98.2 F Temp Source Oral Pulse Oximetry (%) 98 Oxygen Delivery Method Room Air Intake Visit Reasons: Annual PE Intake Note: Pt is here today for her Annual physical. Allergies atorvastatin [Lipitor] Adverse Reaction (Unknown, Verified 06/25/24 11:03) Myalgia metformin Adverse Reaction (Unknown, Verified 06/25/24 11:03) GI side effects simvastatin Adverse Reaction (Unknown, Verified 06/25/24 11:03) Myalgia Tobacco use date assessed: 06/25/24 Fall risk assessment: No Falls in past year Last assessed Fall Risk: 06/25/24 Dental Screening Dental Screen Date: 06/25/24 Did you have a dental visit in the last 12 months?: Yes Did you have a dental problem in the last 6 months where you did not have access to dental care?: No Was dental information given to patient?: Patient has dentist HPI Annual PE HPI Details History of Present Illness The patient is a 64-year-old female presenting for an annual physical examination. Her preventative health screenings include an updated mammogram and a current colonoscopy. She has a recorded history of white coat syndrome, which may contribute to elevated blood pressure readings in clinical settings. At home, her blood pressure readings are typically in a normal range, averaging around 120s/70s mmHg. She denies any cardiovascular or gastrointestinal symptoms such as chest pain, shortness of breath, abdominal pain, constipation, diarrhea, or blood in the stool. Additionally, she denies any psychological distress like suicidal or homicidal ideations. Health Maintenance - Mammogram: Up to date - Colonoscopy: Up to date - Blood pressure monitoring: At home, ty pically 120s/70s mmHg Social History Review of Systems -denies any fevers or chills - Cardiovascular: Denies chest pain, aurea rtness of breath - Gastrointestinal: Denies abdominal toya n, constipation, diarrhea, blood in stool -denies any urinary symptoms - Psychological: Denies suicidal ideatio n, homicidal ideation Physical Exam General: Cooperative, healthy appearing, comfortable, no acute distress and well developed Orientation: Patient oriented x3 Limitations: No limitations Head: Normal to inspection Ears: Hearing grossly normal bilaterally Nose: Normal external nose present Face and sinus: Normal facial exam Eyes: Appearance normal, both eyes and all related structures Neck: Normal visual inspection and Yes full ROM Respiratory: Normal respiratory effort and able to speak in complete sentences. Clear to auscultation bilaterally Cardiovascular: Regular rate and rhythm. Normal S1 and S2. faint systolic to aortic region GI: Normal to inspection. Soft to palpation and nontender Skin: No rashes or lesions noted Neuro: Patient oriented x3 Extremities: Normal to inspection Results Plan The patient underwent an annual physical examination with emphasis on monitoring her blood pressure due to a known history of white coat syndrome. Her home blood pressure readings remain stable with no indication of essential hypertension, and no additional investigations are required at this time. Preventive health measures, including mammograms and colonoscopy, have been maintained appropriately. The patient reports no acute or chronic issues concerning her cardiovascular or gastrointestinal health and denies any psychiatric symptoms. Discussion Notes During our discussion, I reaffirmed with the patient that her white coat syndrome may result in temporarily elevated blood pressure readings during medical visits. I emphasized the importance of regular home blood pressure monitoring, which currently indicates controlled readings. We reviewed her up-to-date mammogram and colonoscopy results and agreed on the continuity of her preventive health strategy. Additionally, I confirmed her lack of symptoms in other bodily systems and provided reassurance about these findings. We did not proceed with new interventions, given the patient?s stability and routine health maintenance. Patient Instructions - Continue regular at-home blood pressur e monitoring. - Follow healthy lifestyle practices. - Keep all preventative screening appoin tments up to date. - Report any new symptoms or changes in health. [facility] Medical History Acid reflux Plantar fasciitis of left foot Foot fracture, left Physical exam Surgical History No pertinent past surgical history Family History Father CAD (coronary artery disease) Myocardial infarction Smoker CHF (congestive heart failure) CVD (cardiovascular disease) Mother No problems noted. Maternal Aunt CVD (cardiovascular disease) Myocardial infarction Other Substance use disorder Social History Housing: House Patient Tobacco Use Status: Never used Tobacco e-Cigarette/Vaping Use: Never Used Second Hand Smoke Exposure: No service: No Current occupational status: retired Cognitive needs: No Hearing needs: No Vision needs: No Questionnaire PHQ-9 Over the last 2 weeks, how often have you been bothered by any of the following problems? 1. Little interest or pleasure in doing things: not at all 2. Feeling down, depressed, or hopeless: not at all 3. Trouble falling or staying asleep, or sleeping too much: several days 4. Feeling tired or having little energy: not at all 5. Poor appetite or overeating: not at all 6. Feeling bad about yourself - or that you are a failure or have let yourself or your family down: not at all 7. Trouble concentrating on things, such as reading the newspaper or watching television: not at all 8. Moving or speaking so slowly that other people could have noticed. Or the opposite - being so fidgety or restless that you have been moving around a lot more than usual: not at all 9. Thoughts that you would be better off or of hurting yourself in some way: not at all Total score: 1 Depression Screening Interpretation: Negative Depression Screening Done: Yes 74488 - PHQ-9 Billing: Yes Source: Developed by Drs. Michael French, Linda Dang, Steve May and colleagues, with an educational finn from [employer]. Thrive Questionnaire Date Thrive assessed: 06/25/24 I am a: Patient What is your living situation today?: I have a steady place to live Within the past 12 months, did the food you bought not last and you didn't have the money to get more?: Never true Within the past 12 months, did you worry whether your food would run out before you got money to buy more?: Never true Do you have trouble paying for medicines?: No Do you have trouble getting transportation to medical appointments?: No Do you have trouble paying your heating and electricity bill?: No Do you have trouble taking care of your child, family member or friend?: No Do you have trouble with day-to-day activities such as bathing, preparing meals, shopping, managing finances, etc.?: No Are you currently unemployed and looking for a job?: No Are you interested in more education?: No Please select the resources that you would like help with: None Currently or been in a relationship where the following occur: No concerns reported THRIVE Score: 0 AUDIT C Alcohol Use Questionnaire (AUDIT-C) 1. How often do you have a drink containing alcohol?: Monthly or less 2. How many drinks containing alcohol do you have on a typical day when you are drinking?: 1 or 2 3. How often do you have six or more drinks on one occasion?: Never Total Score: 1 Score Reviewed/Action Taken: Yes AD-7 AMB Questionnaire AD-7 Date AD - 7 assessed: 06/25/24 Feeling nervous, anxious, or on edge: 1 = Several days Not being able to stop or control worryin = Not at all Worrying too much about different things: 0 = Not at all Trouble relaxin = Not at all Being so restless that it is hard to sit still: 0 = Not at all Becoming easily annoyed or irritable: 0 = Not at all Feeling afraid as if something awful might happen: 0 = Not at all Total AD-7 score (0-4 normal; 5-9 mild; 10-14 moderate; 15-21 severe): 1 Source: Developed by Drs. Michael French, Linda Dang, tSeve May and colleagues, with an educational finn from [employer]. AD-7 Assessment Billing AD-7 Assessment Tool: AD-7 Assessment 13208 Physical exam (Primary Care) Vital Signs: Last Vital Signs Temp 98.2 F 06/25/24 11:00 Pulse 69 06/25/24 11:00 Resp 18 06/25/24 11:00 BP 144/98 H 06/25/24 11:00 Pulse Ox 98 06/25/24 11:00 Oxygen Delivery Method Room Air 06/25/24 11:00 BMI result Body Mass Index 27.3 Tobacco/Smoking Status: Tobacco use Status Tobacco use date assessed 06/25/24 06/25/24 11:04 Patient Tobacco Use Status Never used Tobacco 06/25/24 11:04 e-Cigarette/Vaping Use Never Used 06/25/24 11:04 PHQ-9: PHQ-9 Score PHQ-9: Total score 1 06/25/24 11:21 Depression Screening Interpretation: Negative Thrive Assessment: Date of Thrive Assessment Date Thrive assessed 06/25/24 06/25/24 11:04 Currently or been in a relationship where the following occur: No concerns reported Coding Level of Care Code Est Pt Prev Care 40-64y(33590) Diagnoses Physical exam Z00.00 Postmenopausal Z78.0 Vitamin D deficiency E55.9 Additional Codes AD-7 Assessment Billing - AD-7 Assessment Tool: AD-7 Assessment 80367 ([id number]) PHQ-9 - 64309 - PHQ-9 Billing: Yes ([id number]) Assessment & Plan Assessment & Plan (1) Physical exam: Code(s): Z00.00 - Encounter for general adult medical examination without abnormal findings Category: Medical (2) Postmenopausal: Code(s): Z78.0 - Asymptomatic menopausal state Category: Medical (3) Vitamin D deficiency: Code(s): E55.9 - Vitamin D deficiency, unspecified Category: Medical Plan . Orders: Orders Complete Blood Count Auto Diff Today Z00.00 - Encounter for general adult medical examination without abnormal findings Comprehensive [place]. Panel Fast Today Z00.00 - Encounter for general adult medical examination without abnormal findings TSH reflex Free T4 Today Z00.00 - Encounter for general adult medical examination without abnormal findings UA CC w/rflx Micro + Cult Today Z00.00 - Encounter for general adult medical examination without abnormal findings Lipid Panel Today Z00.00 - Encounter for general adult medical examination without abnormal findings Vitamin D 25-OH Total Today E55.9 - Vitamin D deficiency, unspecified, Z78.0 - Asymptomatic menopausal state
[2024-06-25 11:35] VITALS: BP 146/88
--- OUTSIDE RECORDS SUMMARY | 2024-06-25 13:28 | XMS_ITS ---
Author Organization [facility] Address [address] [place] [address] Care Team Providers Care Group Care Worker Name Role Phone LAMBERTO ELIZALDE M.D Primary Care Provider Aimee Robles Unavailable [phone] Allergies No Known Allergies Results Component Value Reference Range Notes Urinalysis Reviewed date:09/11/2023 11:48:30 AM Interpretation: Performing Lab: Notes/Report: PH 7.0 PROTEIN Neg GLUCOSE Neg BLOOD Neg REASON FOR VISIT Annual STARS COORDINATOR Physical, Annual STARS COORDINATOR Physical 60-85+ Medications Medication SIG (Take, Route, Frequency, Duration) Notes Start Date End Date Status Estradiol 0.1 MG/GM as directed Vaginal Two times a Week for 90 days 09/11/2023 Active Multivitamins 1 ORAL daily for -08/23/2011 Active Estradiol Vaginal Cream 0.01% 1 Gram to the affected area Vaginal/Vulva Twice a week for 90 Days 09/05/2022 Active hydroCHLOROthiazide 12.5MG 1 ORAL DAILY for - Active Rosuvastatin Calcium 40 MG TAKE 1 TABLET BY MOUTH EVERY DAY Oral for 90 Active Synthroid 75 MCG 1 ORAL daily for -08/23/2011 Active Fenofibrate 48 MG TAKE 1 TABLET BY [place] TH EVERY DAY Oral for 90 Active Irbesartan 75 MG TAKE 1 TABLET BY [place] DAILY FOR 30 DAYS Oral for 90 Active Multi-Vitamin - 1 tablet Orally Once a day for 30 day(s) Active LORazepam 0.5 MG TAKE 1 TABLET BY [place] TH EVERY DAY NEEDED FOR ANXIETY Oral for 30 Active Culturelle - as directed Orally Active Pantoprazole Sodium 40 MG 1 tablet Orall y Once a day for 30 day(s) Active Vital Signs Temperature 97.9 degrees Fahrenheit 09/11/19 24 Blood pressure systolic 128 mm Hg 09/11/19 24 Blood pressure diastolic 80 mm Hg 024 Height 62.8 in 09/11/2023 Weight 155 lbs 09/11/2023 BMI 27.63 kg/m2 09/11/2023 Encounters Encounter Location Date Provider Diagnosis [address] [place] [address] 09/11/2023 Aimee Knight Encounter for gynecological examination (general) (routine) without abnormal findings Z01.419 ; Encounter for screening mammogram for malignant neoplasm of breast Z12.31 ; Leiomyoma of uterus, unspecified D25.9 ; Postmenopausal atrophic vaginitis N95.2 and Dense breasts, unspecified R92.30 Assessments Encounter Date Diagnosis (ICD Code) Assessment Notes Treatment Notes Treatment Clinical Notes Section Notes 09/11/2023 Encounter for gynecological examination (general) (routine) without abnormal findings (ICD-10 - Z01.419) NO PAP TEST, DUE IN 2025. 09/11/2023 Encounter for screening mammogram for malignant neoplasm of breast (ICD-10 - Z12.31) REGULAR MAMMOGRAMS AND SBE'S WERE RECOMMENDED. 09/11/2023 Leiomyoma of uterus, unspecified (ICD-10 - D25.9) DISCUSSED FIBROIDS AND THEIR BENIGN NATURE. 09/11/2023 Postmenopausal atrophic vaginitis (ICD-10 - N95.2) CONTINUE ESTRADIOL CREAM. 09/11/2023 Dense breasts, unspecified (ICD-10 - R92.30) DISCUSSED DENSE BREASTS ON MAMMOGRAM AND ITS IMPLICATIONS. 3D MAMMOGRAMS WERE RECOMMENDED. Plan Of Treatment Medication Medication Name Sig Start Date Stop Date Notes Estradiol 0.1 MG/GM as directed Vaginal Two times a Week for 90 days 09/11/2023 Treatment Notes Assessment Notes Encounter for gynecological examination (general) (routine) without abnormal findings NO PAP TEST, DUE IN 2025. Encounter for screening mamm ogram for malignant neoplasm of breast REGULAR MAMMOGRAMS AND SBE'S WERE RECOMMENDED. Leiomyoma of uterus, unspecified DISCUSS ED FIBROIDS AND THEIR BENIGN NATURE. Postmenopausal atrophic vaginitis CONTIN UE ESTRADIOL CREAM. Dense breasts, unspecified DISCUSSED DENSE BREASTS ON MAMMOGRAM AND ITS IMPLICATIONS. 3D MAMMOGRAMS WERE RECOMMENDED. Pending Test Test Name Order Date MAMMOGRAM, SCREENING 09/11/2023 MM Digital Mammo Screening 09/11/2023 Next Appt Details Follow Up: 1 Year, Reason: Provider Name:Aimee Boykin Kennedy cid, 09/16/2024 10:00:00 AM, [address], [address], [place], [address], Progress Notes * ALEXIS SHANKS ANNDOB:[birth year] (63 yo F)Acc No.[id number]:09/11/2023 PROGRESS NOTES Patient:?ALEXIS SHANKS SAKSHI Appointment Provider:?Aimee cid M.D. :1960???Age:63 Y???Sex:Female D ate:09/11/2023 Address:[address] [place] [address], [place] [address] Pcp:LAMBERTO ELIZALDE M.D Subjective: * Chief Complaints: * ???Annual STARS COORDINATOR PhysicalAnnual STARS COORDINATOR Physical 60-85+ * HPI: ???New/Follow-up Patient Consult:? PAT ENTERED MENOPAUSE IN 2013.? SHE USES ESTRADIOL CREAM FOR ATROPHIC VAGINITIS AND IS DOING WELL.? DYSPAREUNIA HAS DIMINISHED. SHE IS KNOWN TO HAVE UTERINE FIBROIDS.? PELVIC ULTRASOUND DONE IN 2017 SHOWED A 6.5 CM FIBROID.?? HER LAST MAMMOGRAM DONE IN NOV 2022 SHOWED DENSE BREASTS AND WAS NORMAL.? HER LIFETIME BREAST CA RISK IS 8.1%. HER LAST PAP TEST IN 2022 WAS NEGATIVE AND HPV NEGATIVE. HER LAST BMD IN 2019 WAS NORMAL. SHE HAD COLONOSCOPIES DONE IN 2012 AND 2021. PFIZER X 2. ???Annual:? Patient presents for annual exam, ages 60-85, postmenopausal. 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 * Medical History:? 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 * OB History:?Total pregnancies?2.?Total living children?2.?NVD?2.? * Surgical History:?Colonoscop y Dental Implant * Hospitalization/Major Diagno stic Procedure:?2 Vaginal Deliveries * Family History:?Mother: dece ased 67 yrs, hepatitis.?Father: 86 yrs, coronary artery disease.?Paternal aunt: breast cancer.? Sister: RA, Dx with Breast Cancer. * Social History:?Tobacco Use:?Tobacco Use/Smoking?Are you a: nonsmoker.?Sexual History:?Sexual History?Had sex in the past 12 months (vaginal, oral, or anal)?: Yes, with: Men only, Use protection?: No, Have you ever had a Sexually transmitted disease?: No.?Details of Sexual History?Are you sexually active??Yes ???Drugs/Alcohol:?Drugs?Have you used drugs other than those for medical reasons in the past 12 months??No ?Alcohol Screen (Audit-C)?Did you have a drink containing alcohol in the past year?: Yes, How often did you have a drink containing alcohol in the past year?: Monthly or less (1 point), How many drinks did you have on a typical day when you were drinking in the past year?: 1 or 2 drinks (0 point), How often did you have 6 or more drinks on one occasion in the past year?: Never (0 point), Points: 1, Interpretation: Negative.?Miscellaneous:?Caffeine: yes, frequency: 2-3 cups of tea. ?Children: yes, 2. ?Exercise: yes, walking. ?Home smoke detector use: yes. ?Living with: spouse. ?Marital status: . ?Natural support system: yes. ?Occupation: Works full-time [employer]. ?Sexually active: yes, monogamous relationship. ?Travel outside of the [place]: no. * Medications:?TakingCulturell e - Capsule as directed Orally Pantoprazole Sodium 40 MG Tablet Delayed Release 1 tablet Orally Once a day Multi-Vitamin - Tablet 1 tablet Orally Once a day LORazepam 0.5 MG Tablet TAKE 1 TABLET BY MOUTH EVERY DAY NEEDED FOR ANXIETY Oral Fenofibrate 48 MG Tablet TAKE 1 TABLET BY MOUTH EVERY DAY Oral Irbesartan 75 MG Tablet TAKE 1 TABLET BY MOTUTH DAILY FOR 30 DAYS Oral Synthroid 75 MCG 30 1 ORAL daily Rosuvastatin Calcium 40 MG Tablet TAKE 1 TABLET BY MOUTH EVERY DAY Oral hydroCHLOROthiazide 12.5MG 30 1 ORAL DAILY Multivitamins 30 1 ORAL daily Estradiol Vaginal Cream 0.01% Cream 1 Gram to the affected area Vaginal/Vulva Twice a week Taking Culturelle - Capsule as directed Orally Taking Pantoprazole Sodium 40 MG Tablet Delayed Release 1 tablet Orally Once a day Taking Multi-Vitamin - Tablet 1 tablet Orally Once a day Taking LORazepam 0.5 MG Tablet TAKE 1 TABLET BY MOUTH EVERY DAY NEEDED FOR ANXIETY Oral Taking Fenofibrate 48 MG Tablet TAKE 1 TABLET BY MOUTH EVERY DAY Oral Taking Irbesartan 75 MG Tablet TAKE 1 TABLET BY MOTUTH DAILY FOR 30 DAYS Oral Taking Synthroid 75 MCG 30 1 ORAL daily Taking Rosuvastatin Calcium 40 MG Tablet TAKE 1 TABLET BY MOUTH EVERY DAY Oral Taking hydroCHLOROthiazide 12.5MG 30 1 ORAL DAILY Taking Multivitamins 30 1 ORAL daily Taking Estradiol Vaginal Cream 0.01% Cream 1 Gram to the affected area Vaginal/Vulva Twice a week DiscontinuedCVS Soluble Fiber Therapy 500 MG Tablet TAKE 1 CAPSULE TWICE DAILY Oral Estradiol Vaginal Cream 0.01% Cream 1 Gram intravaginally & along vulva Twice a week Omeprazole 40MG 60 1 ORAL twice daily Losartan Potassium 25 MG Tablet TAKE 1 TABLET BY MOUTH EVERY DAY Oral Fish Oil 30 1 ORAL daily Medication List reviewed and reconciled with the patientDiscontinued CVS Soluble Fiber Therapy 500 MG Tablet TAKE 1 CAPSULE TWICE DAILY Oral Discontinued Estradiol Vaginal Cream 0.01% Cream 1 Gram intravaginally & along vulva Twice a week Discontinued Omeprazole 40MG 60 1 ORAL twice daily Discontinued Losartan Potassium 25 MG Tablet TAKE 1 TABLET BY MOUTH EVERY DAY Oral Discontinued Fish Oil 30 1 ORAL daily Medication List reviewed and reconciled with the patient * Allergies:?N.K.D.A.no[Allerg ies Verified] Objective: * Vitals:?Ht: 62.8 in, Wt:155l bs, BMI:27.63Index, BP:128/80mm Hg, Temp:97.9F. * Examination: ???General Exam: ?CONSTITUTIONAL:?General Appearance:?alert, in no acute distress, normal, well nourished ?NECK/THYROID:?Inspection/Palpation:?normal ?Thyroid:?normal size and shape ?RESPIRATORY:?Auscultation: clear to auscultation bilaterally, Respiratory Effort: normal.?CARDIOVASCULAR:?Auscultation: regular rate and rhythm.?BREAST, Right:?Inspection/Palpation:?no discharge, no masses present, no nipple retraction, no skin changes, no skin dimpling, no tenderness, no lymphadenopathy, no axillary mass, no axillary tenderness ?BREAST, Left:?Inspection/Palpation:?no discharge, no masses present, no nipple retraction, no skin changes, no skin dimpling, no tenderness, no lymphadenopathy, no axillary mass, no axillary tenderness ?GASTROINTESTINAL:?Abdomen:?no masses, nontender, nondistended ?Liver and Spleen:?normal ?Hernias:?no hernias present, no inguinal adenopathy ?MUSCULOSKELETAL:?Inspection/Palpation:?no clubbing, cyanosis, or edema ?SKIN:?Skin:?normal ?NEURO/PSYCH:?Orientation:?time , place, person ?Mood/Affect:?normal?Genitourinary: ?EXTERNAL GENITALIA:?External Genitalia:?normal, no lesions ?VAGINA:?Vagina:?normal appearance, no abnormal discharge, no lesions ?BLADDER:?Bladder:?no mass, nontender ?URETHRA:?Urethra:?no erythema or lesions present ?CERVIX:?Cervix:?no lesions, nontender ?UTERUS:?Uterus:?UTERUS IS IRREGULARLY ENLARGED TO 10 WEEKS, NONTENDER ?ADNEXA:?Adnexa:?no masses, no tenderness ?ANUS AND PERINEUM:?Anus/Perineum:?visually normal??? Assessment: * Assessment: 1.?Encounter for gynecologic al examination (general) (routine) without abnormal findings - Z01.419?2.?Encounter for screening mammogram for malignant neoplasm of breast - Z12.31?3.?Leiomyoma of uterus, unspecified - D25.9?4.?Postmenopausal atrophic vaginitis - N95.2?5.?Dense breasts, unspecified - R92.30? Plan: * Treatment: ? Value Reference Range ?PH 7.0 * ?PROTEIN Neg * ?GLUCOSE Neg * ?BLOOD Neg * D.EVIE 09/11/2023 10:22:14 AM EDT > Notes: NO PAP TEST, DUE IN 2025.??2.?Encounter for screening mammogram for malignant neoplasm of breast?Imaging: MM Digital Mammo Screening Notes: REGULAR MAMMOGRAMS AND SBE'S WERE RECOMMENDED.??3.?Leiomyoma of uterus, unspecified? Notes: DISCUSSED FIBROIDS AND THEIR BENIGN NATURE. ??4.?Postmenopausal atrophic vaginitis? Start Estradiol Cream, 0.1 MG/GM, as directed, Vaginal, Two times a Week, 90 days, 42.5 Gram, Refills 3.?? Notes: CONTINUE ESTRADIOL CREAM.??5.?Dense breasts, unspecified? Notes: DISCUSSED DENSE BREASTS ON MAMMOGRAM AND ITS IMPLICATIONS. 3D MAMMOGRAMS WERE RECOMMENDED.?? * Imaging:? * ?Imaging: MAMMOGRAM, SCR EENING * Procedure Codes:? * Preventive Medicine:? ??YOUR PREVENTIVE WELLNESS PLAN:?Osteoporosis prevention?Calcium, D, strength training.?Breast Cancer Screening (Mammogram):?annually.?Cervical Cancer Screening (Pap Smear):?q 3 years with HPV screen.?Colorectal Cancer Screening:?q 10 years.? * Follow Up:?1 Year * Images: Billing Information: * Visit Code:? [id number] Preventive Care Est Pt. Age 65 and over. * Procedure Codes:? * Sign off status: Completed true * Appointment Provider:?Aimee Knight M.D. Date:?09/11/2023 Generated for Demetrius king/Abilio/eTgeralditting on:?06/25/2024 01:28 PM EST History and Physical Notes * HPI (History of Present Illness) Category Sub-Category Detail Notes Category Not es New/Follow-up Patient Consult PAT ENTERED MENOPAUSE IN 2013. SHE USES ESTRADIOL CREAM FOR ATROPHIC VAGINITIS AND IS DOING WELL. DYSPAREUNIA HAS DIMINISHED. SHE IS KNOWN TO HAVE UTERINE FIBROIDS. PELVIC ULTRASOUND DONE IN 2017 SHOWED A 6.5 CM FIBROID. HER LAST MAMMOGRAM DONE IN NOV 2022 SHOWED DENSE BREASTS AND WAS NORMAL. HER LIFETIME BREAST CA RISK IS 8.1%. HER LAST PAP TEST IN 2022 WAS NEGATIVE AND HPV NEGATIVE. HER LAST BMD IN 2019 WAS NORMAL. SHE HAD COLONOSCOPIES DONE IN 2012 AND 2021. PFIZER X 2. 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 Examination Category Sub-Category Detail Notes Category Not es General Exam CONSTITUTIONAL: General Appearan ce:: alert, in no acute distress, normal, well nourished NECK/THYROID: Thyroid:: normal size and shape Inspection/Palpation:: normal RESPIRATORY: Auscultation: clear to auscultation bilaterally, Respiratory Effort: normal CARDIOVASCULAR: Auscultation: regula r rate and rhythm GASTROINTESTINAL: Hernias:: no hernias present, no inguinal adenopathy Liver and Spleen:: normal Abdomen:: no masses, nontender, nondiste nded MUSCULOSKELETAL: Inspection/Palpation:: no clubb ing, cyanosis, or edema SKIN: Skin:: normal NEURO/PSYCH: Mood/Affect:: normal Orientation:: time , place, person BREAST, Right: Inspection/Palpation :: no discharge, no masses present, no nipple retraction, no skin changes, no skin dimpling, no tenderness, no lymphadenopathy, no axillary mass, no axillary tenderness BREAST, Left: Inspection/Palpation :: no discharge, no masses present, no nipple retraction, no skin changes, no skin dimpling, no tenderness, no lymphadenopathy, no axillary mass, no axillary tenderness Genitourinary EXTERNAL GENITALIA: External Genitalia:: nor mal, no lesions VAGINA: Vagina:: normal appe arance, no abnormal discharge, no lesions BLADDER: Bladder:: no mass, nontender URETHRA: Urethra:: no erythem a or lesions present CERVIX: Cervix:: no lesions, nontender UTERUS: Uterus:: UTERUS IS IRREGU LARLY ENLARGED TO 10 WEEKS, NONTENDER ADNEXA: Adnexa:: no masses, no tendernes s ANUS AND PERINEUM: Anus/Perineum:: visually norm al
--- OUTSIDE RECORDS SUMMARY | 2024-06-25 13:28 | XMS_ITS | Patient Health Record ---
Author Organization [facility] [facility] Address [address] [place] [address] Care Team Providers Care Telecommunications Consultant Name Role Phone LAMBERTO ELIZALDE M.D Primary Care Provider Aimee Robles Unavailable [phone] Allergies No Known Allergies Results Component Value Reference Range Notes Urinalysis Reviewed date:09/11/2023 11:48:30 AM Interpretation: Performing Lab: Notes/Report: PH 7.0 PROTEIN Neg GLUCOSE Neg BLOOD Neg Reason For Referral No Information Medications Medication SIG (Take, Route, Frequency, Duration) Notes Start Date End Date Status Culturelle - as directed Orally Active Pantoprazole Sodium 40 MG 1 tablet Orall y Once a day for 30 day(s) Active Multivitamins 1 ORAL daily for -08/23/2011 Active Estradiol Vaginal Cream 0.01% 1 Gram to the affected area Vaginal/Vulva Twice a week for 90 Days 09/05/2022 Active hydroCHLOROthiazide 12.5MG 1 ORAL DAILY for - Active Synthroid 75 MCG 1 ORAL daily for -08/23/2011 Active Rosuvastatin Calcium 40 MG TAKE 1 TABLET BY MOUTH EVERY DAY Oral for 90 Active Fenofibrate 48 MG TAKE 1 TABLET BY [place] TH EVERY DAY Oral for 90 Active Irbesartan 75 MG TAKE 1 TABLET BY MOTUTH DAILY FOR 30 DAYS Oral for 90 Active Multi-Vitamin - 1 tablet Orally Once a day for 30 day(s) Active Estradiol 0.1 MG/GM as directed Vaginal Two times a Week for 90 days 09/11/2023 Active LORazepam 0.5 MG TAKE 1 TABLET BY [place] TH EVERY DAY NEEDED FOR ANXIETY Oral for 30 Active Problems Problem Type SNOMED Code ICD Code Onset Dates Problem Status W/U Status Risk Notes Problem Postmenopausal atrophic vaginitis (90520548) Postmenopausal atrophic vaginitis (N95.2) Active confirmed Problem Atrophy of vulva (569679476) Atrophy of vulva (N90.5) Active confirmed Problem Submucous leiomyoma of uterus (12863228) Submucous leiomyoma of uterus (218.0) Active confirmed Diag Problem Leiomyoma of uterus (00459258) Leiomyoma of uterus, unspecified (218.9) Active confirmed Major Problem Hypothyroidism (83090424) Unspecified hypothyroidism (244.9) Active confirmed Major Problem Hyperlipidemia (37154370) Other and unspecified hyperlipidemia (272.4) Active confirmed Major Problem Benign essential hypertension (9533787) Essential hypertension, benign (401.1) Active confirmed Major Problem Menopausal symptom (86075030) Symptomatic menopausal or female climacteric states (627.2) Active confirmed Diag Problem Gynecological examination normal (918803097292011) Routine gynecological examination (V72.31) Active confirmed Major Problem Screening for malignant neoplasm of colon (320375433) Special screening for malignant neoplasms, colon (V76.51) Active confirmed Major Vital Signs Temperature 97.9 degrees Fahrenheit 09/11/2023 Blood pressure diastolic 80 mm Hg 09/11/2023 Height 62.8 in 09/11/2023 Blood pressure systolic 128 mm Hg 09/11/2023 Weight 155 lbs 09/11/2023 BMI 27.63 kg/m2 09/11/2023 Encounters Encounter Location Date Provider Diagnosis Total [address] [place] [address] 09/11/2023 Aimee Knight Encounter for gynecological examination [...] 3D MAMMOGRAMS WERE RECOMMENDED. Plan Of Treatment Pending Test Test Name Order Date MAMMOGRAM, SCREENING 04/06/2021 MAMMOGRAM, SCREENING 09/05/2022 MAMMOGRAM, SCREENING 09/11/2023 MAMMOGRAM, SCREENING 10/05/2014 Urinalysis 04/06/2021 Urinalysis 01/17/2017 Urinalysis 01/30/2018 THIN PREP,HPV,SULLY IF HPV+ (>29YR)(SCRN) 01/17/2017 MM Digital Mammo Screening 04/06/2021 MM Digital Mammo Screening 09/05/2022 MM Digital Mammo Screening 09/11/2023 MM Digital Mammo Screening 01/18/2016 ULTRASOUND: PELVIC W/TRANSVAGINAL 2017 Next Appt Details Provider Name:Aimee cid, 09/16/2024 10:00:00 AM, [address] [place] [address], [address], [place], [address], Insurance Providers Payer Name Payer Address Payer Phone Subscriber Number Group Number Insured Name Patient Relationship to Insured Coverage Start Date Coverage End Date [employer] [place] [address] [place] [address] [id number] ALEXIS SHANKS Self - patient is the insured Medical (General) History Medical History History ICD Code Submucous leiomyoma of uterus D25.0 Menopausal and female climacteric states N95.1 Other hyperlipidemia E78.4 Essential (primary) hypertension I10 Hypothyroidism, unspecified E03.9 Leiomyoma of uterus, unspecified D25.9 Postmenopausal atrophic vaginitis N95.2 Inconclusive mammogram R92.2 Atrophy of vulva N90.5 Mammographic heterogeneous density, bila teral breasts R92.333 Surgical History Surgery Date(Month/Year) Colonoscopy Dental Implant Hospitalization History Reason Date(Month/Year) 2 Vaginal Deliveries
== END 2024-06-25 11:37 | disposition home or self-care (01) ==
PROVIDERS: PCP Nurse Practitioner Family; Visit Provider Nurse Practitioner Family
DX: Z00.00 Encounter for general adult medical examination without abnormal findings (principal); Z78.0 Asymptomatic menopausal state; E55.9 Vitamin D deficiency, unspecified

== ENCOUNTER → 2024-06-25 10:50 | Outpatient (BNVA) | payer BC, SELFPAY | PROVIDERS: PCP Nurse Practitioner Family; Visit Provider Nurse Practitioner Family | DX: Z00.00 Encounter for general adult medical examination without abnormal findings (principal); E55.9 Vitamin D deficiency, unspecified; Z78.0 Asymptomatic menopausal state | CPT/HCPCS: 96127 ==

== ENCOUNTER 2024-08-14 08:08 | Outpatient (REF) | payer BC, SELFPAY ==
[2024-08-14 10:04] LABS: MANUAL DIFF FLAG NO
[2024-08-14 10:23] LABS: Basophils Percent Auto 0.6 % (0-2); Eosinophils Absolute Auto 0.1 X10*3/uL (0.0-0.4); Eosinophils Percent Auto 1.8 % (0-4); Hematocrit 43.4 % (37.0-47.0); Hemoglobin 14.2 g/dl (12.0-16.0); Imm Gran Abs Auto 0.03 X10*3/uL (0.00-0.03); Imm Gran Pct Auto 0.4 % (0.0-0.4); Lymphocytes Absolute Auto 2.5 X10*3/uL (1.2-4.9); Lymphocytes Percent Auto 34.9 % (20-40); Mean Corpuscular HGB Conc 32.7 g/dl (31.0-35.0); Mean Corpuscular Hemoglobin 30.3 pg (27.0-33.0); Mean Corpuscular Volume 92.5 fL (80.0-98.0); Mean Platelet Volume 10.2 fL (9.4-12.3); Monocytes Absolute Auto 0.7 X10*3/uL (0.1-1.2); Monocytes Percent Auto 9.6 % (2-11); Neutrophils Absolute Auto 3.7 x10*3/uL (2.0-8.3); Neutrophils Percent Auto 52.7 % (45-73); Platelet Count 277 X10*3/uL (160-400); Red Blood Count 4.69 X10*6/uL (4.20-5.50); Red Cell Distribution Width 12.7 % (11.0-16.0); White Blood Count 7.1 X10*3/uL (4.8-10.8)
[2024-08-14 10:54] LABS: Alanine Aminotransferase 27 U/L (0-31); Albumin Level 4.4 g/dL (3.5-5.0); Anion Gap 11 (12-20); Aspartate Amino Transferase 33 U/L (5-31); Bilirubin Total 0.5 mg/dL (0.0-1.0); Blood Urea Nitrogen 17 mg/dL (9-16); Calcium 9.7 mg/dL (8.4-10.2); Carbon Dioxide 28 mmol/L (22-29); Chloride 105 mmol/L (96-108); Cholesterol 148 mg/dL (<200); Estimated Glomerular Filt Rate > 60; Glucose Fasting 99 mg/dL (60-99); HDL Cholesterol 42 mg/dL (>40); LDL Cholesterol Calculated 83 mg/dL (<100); Potassium 3.8 mmol/L (3.3-5.1); Sodium 140 mmol/L (135-145); Total Protein 6.9 g/dL (6.5-8.0); Triglycerides 118 mg/dL (<150)
[2024-08-14 10:57] LABS: Appearance Urine Cloudy; Color Urine Yellow; Glucose Urine UA Negative (Negative); Leukocyte Esterase Urine Trace (Negative); Nitrite Urine Negative (Negative); Specific Gravity - Urine 1.015 (1.005-1.025); UMIC TRIGGER UACC YES; Urine Blood Negative (Negative); Urine Ketones Negative (Negative); Urine Protein Negative (Neg-Trace)
[2024-08-14 11:05] LABS: Alkaline Phosphatase 61 U/L (39-117); TSH reflex Free T4 1.97 uIU/mL (0.32-4.0); Vitamin D 25-OH Total 89.2 ng/mL (>30)
[2024-08-14 11:12] LABS: Bacteria Urine None Seen (None Seen); Hyaline Casts Urine 0-2 /LPF (0-2); RBC Urine 0-2 /HPF (0-2); Squamous Epithelial Cell Urine 0-2 /HPF (0-2); WBC Urine 0-5 /HPF (0-5)
== END 2024-08-14 08:09 | disposition home or self-care (01) ==
LOC: HO.HMGCLDS 08:08
PROVIDERS: PCP Nurse Practitioner Family; Visit Provider Nurse Practitioner Family
DX: Z00.00 Encounter for general adult medical examination without abnormal findings (principal); Z78.0 Asymptomatic menopausal state; E55.9 Vitamin D deficiency, unspecified
CPT/HCPCS: 36415; 80053; 80061; 81001; 82306; 84443; 85025

== ENCOUNTER 2024-09-11 08:14 | Outpatient (REF) | payer BC, SELFPAY ==
--- NOTE | ~2024-09-11 | US_ITS ---
EXAMINATION: US ABDOMEN HISTORY: R74.8 - Abnormal levels of other serum enzymes TECHNIQUE: Real-time grayscale ultrasound imaging of the abdomen was performed and images were reviewed. COMPARISON: There are no prior studies for comparison. FINDINGS: Liver: The right lobe of the liver measures 11.9 cm in size. The left lobe of the liver measures 9.8 cm in size. The liver demonstrates normal homogeneous echotexture. No focal mass or intrahepatic biliary ductal dilatation is identified. There is normal hepatopedal flow in the portal vein. Gallbladder and biliary tree: The gallbladder is unremarkable, without evidence of calculi, wall thickening, or pericholecystic fluid. There is no sonographic Burkett sign. The common bile duct is normal in caliber measuring 5 mm. Kidneys: The right kidney measures 11.3 cm in length. The left kidney measures 11.2 cm in length. The kidneys are unremarkable, without evidence of masses, hydronephrosis, or calculi. Pancreas: The pancreatic head, neck, and body are unremarkable. The pancreatic tail is obscured by bowel gas. Spleen: The spleen is normal in size and contour, measuring 10.0 cm in length. Abdominal aorta and inferior vena cava: The visualized portions of the abdominal aorta and inferior vena cava are normal in caliber. There is no free fluid in the abdomen. US/US abdomen complete IMPRESSION: Unremarkable abdominal ultrasound. Electronically signed by: Michael Morrison MD 09/11/2024 08:58 AM EDT
[2024-09-11 11:15] LABS: Appearance Urine Cloudy; Color Urine Yellow; Glucose Urine UA Negative (Negative); Leukocyte Esterase Urine Negative (Negative); Nitrite Urine Negative (Negative); PH >= 9.0 (5.0-9.0); Specific Gravity - Urine 1.015 (1.005-1.025); Urine Blood Negative (Negative); Urine Ketones Negative (Negative); Urine Protein Negative (Neg-Trace)
[2024-09-11 11:21] LABS: HBc Num1 0.05 S/CO (0.00-0.79); HBsAGNum1 0.39 S/CO (0.00-0.99); Hepatitis A Antibody IgM 0.14 Index (0-0.79); Hepatitis B Core Antibody Nonreactive (Nonreactive); Hepatitis B Surface Antigen Negative (Negative); ~HepC Num1 0.06 S/CO (0.00-0.79); ~Hepatitis A Antibody IgM Nonreactive (Nonreactive); ~Hepatitis B Surface Antibody NONREACTIVE (Nonreactive); ~Hepatitis C Antibody Nonreactive (Nonreactive)
== END 2024-09-11 08:15 | disposition home or self-care (01) ==
LOC: HO.HMGCX 08:14
PROVIDERS: PCP Nurse Practitioner Family; Visit Provider Nurse Practitioner Family
DX: R74.8 Abnormal levels of other serum enzymes (principal); Z00.00 Encounter for general adult medical examination without abnormal findings
CPT/HCPCS: 36415; 76700; 81003; 86704; 86706; 86709; 86803; 87340

== ENCOUNTER → 2024-09-11 08:16 | Outpatient (BNV) | payer BC, SELFPAY | PROVIDERS: PCP Nurse Practitioner Family; Visit Provider Radiology Diagnostic Radiology | DX: R74.8 Abnormal levels of other serum enzymes (principal) | CPT/HCPCS: 76700 ==

== ENCOUNTER 2024-09-26 11:44 | Outpatient (AMB) | payer BC, SELFPAY ==
--- NOTE | 2024-09-26 11:55 | A.OFFVIS_ITS ---
Vital Signs 09/26/24 11:57 Height 5 ft 3 in Weight 154 lb 5.177 oz BMI 27.3 BP 136/63 Blood Pressure Location Lt brachial Position Sitting Pulse 57 Intake Visit Reasons: acid reflex/med refills Intake Note: Jatinder presents in the office as a follow up for her refill of her medication. CC: feels okay - no issues. Allergies atorvastatin [Lipitor] Adverse Reaction (Unknown, Verified 06/25/24 11:03) Myalgia metformin Adverse Reaction (Unknown, Verified 06/25/24 11:03) GI side effects simvastatin Adverse Reaction (Unknown, Verified 06/25/24 11:03) Myalgia HPI HPI acid reflex/med refills: Details: 64-year-old female here for initial evaluation of GERD. She was seen in the past by Nargis Franks but has not been seen by this practice since 2021. Her primary care provider is Calvin Hodgson. PMX Hypertension High cholesterol Elevated liver enzymes GERD Diarrhea Hemorrhoids Elevated ferritin Anxiety History of foot fracture with plantar fasciitis * SURGICAL HISTORY ESOPHAGOGASTRODUODENOSCOPY-01/2022 HIS SON COLONOSCOPY-01/2022 HIS SON; LARGE INTERNAL HEMORRHOIDS SEVERE DIVERTICULOSIS * ALLERGIES Atorvastatin Metformin Simvastatin * [facility]: Laboratory Tests 08/14/24 08:12 WBC 7.1 Hgb 14.2 Hct 43.4 Plt Count 277 Estimated GFR > 60 Total Bilirubin 0.5 AST 33 H ALT 27 Alkaline Phosphatase 61 TSH 1.97 TODAY'S VISIT It appears that in the past she was on pantoprazole Diarrhea caused by anxiety/stress and is controlled. Pantoparzole controlling ROV 1 year [facility] Medical History Physical exam Family history of rheumatoid arthritis Pain of left scapula Mold exposure Fatigue SOB (shortness of breath) on exertion Physical exam Diverticulosis of colon Benign fundic gland polyps of stomach Contact dermatitis Upper respiratory tract infection Skin lesion Acid reflux Plantar fasciitis of left foot Foot fracture, left Physical exam Surgical History No pertinent past surgical history Family History Father CAD (coronary artery disease) Myocardial infarction Smoker CHF (congestive heart failure) CVD (cardiovascular disease) Mother No problems noted. Maternal Aunt CVD (cardiovascular disease) Myocardial infarction Other Substance use disorder Social History Housing: House Patient Tobacco Use Status: Never used Tobacco e-Cigarette/Vaping Use: Never Used Second Hand Smoke Exposure: No service: No Current occupational status: retired Cognitive needs: No Hearing needs: No Vision needs: No Review of Systems Const Denies fatigue, Denies fever(s), Denies night sweats, Denies poor appetite and Denies weight loss Eyes Details: glasses Reports requires corrective lenses ENT Reports Normal hearing present, Denies dental pain, Denies dysphagia, Denies hearing loss, Denies mouth pain, Denies odynophagia, Denies throat swelling, Denies tongue swelling and Reports other (Dentition adequate) GI Details: Denies abdominal pain, Denies melena, Denies bloating, Denies hematochezia, Denies constipation, Denies GI cramping, Denies dysphagia, Denies excessive flatus, Denies early satiety, Denies heartburn, Denies diarrhea, Denies nausea, Denies odynophagia, Denies vomiting and Denies hematemesis Skin/Breast Denies pruritus, Denies lesions, Denies rash and Denies jaundice Neuro Reports Normal hearing present and Denies Abnormal speech present Endo Denies fatigue Aller/Immun Denies throat swelling and Denies tongue swelling Physical Exam Vital Signs: Last Vital Signs Pulse 57 09/26/24 11:57 BP 136/63 09/26/24 11:57 BMI result Body Mass Index 27.3 Const General: cooperative, no acute distress, well developed and well groomed Nutritional Appearance: average body habitus and well nourished Orientation/consciousness: oriented to person, oriented to place and oriented to time Limitations: No language barrier HEENT Head: Yes normocephalic and Yes atraumatic Eyes General: appearance normal, both eyes and all related structures Pupils: Equal, round and reactive pupils present Neck Neck: Yes normal visual inspection and Yes no lymphadenopathy Thyroid: Thyroid normal Resp Effort & Inspection: normal respiratory effort and able to speak in complete sentences Auscultation: clear to auscultation bilaterally Cardio Rate: regular rate Rhythm: regular rhythm Heart sounds: Normal, physiologic split S2 sound present Peripheral pulses: radial pulses present and posterior tibial pulses present GI Inspection: No distended and No Abdominal panniculus present Palpation (GI): Soft to palpation, nontender, no guarding, not rigid and No hepatosplenomegaly present Percussion: Yes normal to percussion Auscultation: normal bowel sounds Rectal Exam - Female: deferred Skin General skin exam: no rashes or lesions noted, turgor normal, skin not dry, no jaundice, No spider nevi and no striae Rashes: no rashes Nails: normal Neuro General: oriented to person, oriented to place and oriented to time Cranial nerves: Yes Equal, round and reactive pupils present and Yes Normal hearing present Speech: No Abnormal speech present Extrem General: Yes normal to inspection, No clubbing, No cyanosis and No edema Psych Appearance: grossly normal and well kempt Mental Status: mental status grossly normal Speech and movement: Normal speech and movement present Affect: normal affect Attitude: cooperative Thought process: Normal thought process present and not confabulating Thought content: Normal thought content present Insight: Good insight present (Psych) Judgement: Good judgement present (Psych) Assessment & Plan Assessment & Plan (1) Acid reflux: Comment: PPI for many years- Code(s): K21.9 - Gastro-esophageal reflux disease without esophagitis Category: Medical Plan It appears that in the past she was on pantoprazole Diarrhea caused by anxiety/stress and is controlled. Pantoparzole controlling ROV 1 yea Medications: Changed From pantoprazole 40 mg PO DAILY 30 tabs 11RF K21.9 - Gastro-esophageal reflux disease without esophagitis To pantoprazole 40 mg PO DAILY 90 tabs 1RF 90 days K21.9 - Gastro-esophageal reflux disease without esophagitis Coding Level of Care Code Est Pt Level 3 (20341) Diagnoses Acid reflux K21.9
[2024-09-26 11:57] VITALS: BP 136/63; PULSE 57; BMI 27.3
== END 2024-09-26 12:25 | disposition home or self-care (01) ==
LOC: HO.HGI 11:44
PROVIDERS: PCP Nurse Practitioner Family; Visit Provider Nurse Practitioner
DX: K21.9 Gastro-esophageal reflux disease without esophagitis (principal)
CPT/HCPCS: 99213